=== PATIENT | female | born 1945 | race Caucasian/White ===

== ENCOUNTER → 2018-06-19 08:30 | Outpatient (CLI) | payer MEDICARE, OTHER, SELFPAY ==
[2018-06-19 10:01] LABS: Blood Urea Nitrogen 12 mg/dL (7-17); Calcium 9.5 mg/dL (8.4-10.2); Carbon Dioxide 34 mmol/L (22-32); Chloride 97 mmol/L (98-107); Cholesterol 178 mg/dL (140-199); Estimated Glomerular Filt Rate > 60.0 mL/min (>60); Glucose 101 mg/dL (80-110); HDL Cholesterol 59 mg/dL (40-60); HEMOLYSIS < 15 (0-50); LDL Cholesterol Calculated 90 mg/dL (<100); Potassium 4.6 mmol/L (3.4-5.1); Sodium 138 mmol/L (137-145); Triglycerides 145 mg/dL (35-150)
== END ==
PROVIDERS: Visit Provider Family Medicine
DX: R73.01 Impaired fasting glucose (principal); E78.00 Pure hypercholesterolemia, unspecified
CPT/HCPCS: 36415; 80048; 80061

== ENCOUNTER → 2018-08-08 12:31 | Outpatient (CLI) | payer MEDICARE, OTHER, SELFPAY ==
--- NOTE | 2018-08-08 | DI.RAD.S_ITS ---
This blank DEXA report has been sent in error by the PACS system. The correct and complete report will be forthcoming in 1-2 days. Thank you for your patience and understanding. Dictated by: Vianey Antonio MD, PhD on 08/08/2018 at 15:15 Approved by: Vianey Antonio MD, PhD on 08/08/2018 at 15:15
== END ==
PROVIDERS: Visit Provider Family Medicine
DX: M85.852 Other specified disorders of bone density and structure, left thigh (principal); Z78.0 Asymptomatic menopausal state
CPT/HCPCS: 77080

== ENCOUNTER → 2018-10-03 11:44 | Outpatient (CLI) | payer MEDICARE, OTHER, SELFPAY ==
--- NOTE | 2018-10-03 | DI.CT.S_ITS ---
PROCEDURE: CT HEAD/BRAIN WO CON INDICATIONS: HEADACHE TECHNIQUE: Noncontrast 4.5 mm thick angled axial sections acquired from the foramen magnum to the vertex, with coronal and sagittal reformats. For radiation dose reduction, the following was used: automated exposure control, adjustment of mA and/or kV according to patient size. COMPARISON: None. FINDINGS: Image quality: Excellent. CSF spaces: Basal cisterns are patent. No extra-axial fluid collections. The ventricles are symmetric in size and shape. Brain: No intracranial bleeds or masses. There is cerebral volume loss for age, with resultant ventricular and sulcal prominence. There are periventricular and deep white matter chronic small vessel ischemic changes. Incidental note made of a large falcine ossification center. There is intracranial internal carotid artery atherosclerosis. Skull and face: Calvarium and visualized facial bones appear intact, without suspicious lesions. Sinuses: Mucosal thickening noted in the posterior right ethmoid air cells. The mastoids are clear. IMPRESSION: No acute intracranial disease process. No intracranial hemorrhage. No abnormal intracranial mass. Dictated by: Vianey Antonio MD, PhD on 10/03/2018 at 12:01 Approved by: Vianey Antonio MD, PhD on 10/03/2018 at 12:04
== END ==
PROVIDERS: Visit Provider Family Medicine
DX: R51 Headache (principal)
CPT/HCPCS: 70450

== ENCOUNTER → 2019-09-29 08:59 | Outpatient (CLI) | payer MEDICARE, OTHER, SELFPAY ==
[2019-09-29 10:14] LABS: Hemoglobin A1C% w Est Avg Glu 5.5 % (4.0-6.0)
[2019-09-29 10:31] LABS: Alanine Aminotransferase 18 IU/L (<35); Albumin 4.4 g/dL (3.5-5.0); Albumin Globulin Ratio 1.4 (1.0-2.8); Alkaline Phosphatase 84 U/L (38-126); Aspartate Aminotransferase 31 IU/L (14-36); BUN Creatinine Ratio 15.7 (6-22); Bilirubin Total 0.7 mg/dL (0.2-1.3); Blood Urea Nitrogen 11 mg/dL (7-17); Calcium 9.4 mg/dL (8.4-10.2); Carbon Dioxide 31 mmol/L (22-32); Chloride 100 mmol/L (98-107); Cholesterol 208 mg/dL (140-199); Estimated Glomerular Filt Rate > 60.0 mL/min (>60); Globulin 3.2 g/dL (1.7-4.1); Glucose 115 mg/dL (80-110); HDL Cholesterol 55 mg/dL (40-60); HEMOLYSIS < 15 (0-50); LDL Cholesterol Calculated 121 mg/dL (<100); Potassium 4.5 mmol/L (3.4-5.1); Sodium 138 mmol/L (137-145); Total Protein 7.6 g/dL (6.3-8.2); Triglycerides 162 mg/dL (35-150)
== END ==
PROVIDERS: Visit Provider Family Medicine
DX: Z83.3 Family history of diabetes mellitus (principal); R73.01 Impaired fasting glucose; E78.00 Pure hypercholesterolemia, unspecified
CPT/HCPCS: 36415; 80053; 80061; 83036

== ENCOUNTER → 2020-04-16 08:21 | Outpatient (CLI) | payer MEDICARE, OTHER, SELFPAY ==
[2020-04-16 09:47] LABS: Cholesterol 179 mg/dL (140-199); HDL Cholesterol 63 mg/dL (40-60); LDL Cholesterol Calculated 86 mg/dL (<100); Triglycerides 149 mg/dL (35-150)
== END ==
PROVIDERS: PCP Family Medicine; Referring Provider Family Medicine; Visit Provider Family Medicine
DX: E78.00 Pure hypercholesterolemia, unspecified (principal)
CPT/HCPCS: 36415; 80061

== ENCOUNTER → 2021-01-21 08:14 | Outpatient (CLI) | payer MEDICARE, OTHER, SELFPAY ==
[2021-01-21 10:07] LABS: Hemoglobin A1C% w Est Avg Glu 5.5 % (4.0-6.0)
[2021-01-21 10:12] LABS: Alanine Aminotransferase 18 IU/L (<35); Albumin 4.3 g/dL (3.5-5.0); Albumin Globulin Ratio 1.5 (1.0-2.8); Alkaline Phosphatase 77 U/L (38-126); Aspartate Aminotransferase 32 IU/L (14-36); BUN Creatinine Ratio 17.1 (6-22); Bilirubin Total 0.7 mg/dL (0.2-1.3); Blood Urea Nitrogen 12 mg/dL (7-17); Calcium 9.2 mg/dL (8.4-10.2); Carbon Dioxide 29 mmol/L (22-32); Chloride 98 mmol/L (98-107); Cholesterol 158 mg/dL (140-199); Estimated Glomerular Filt Rate > 60.0 mL/min (>60); Globulin 2.9 g/dL (1.7-4.1); Glucose 114 mg/dL (80-110); HDL Cholesterol 61 mg/dL (40-60); HEMOLYSIS < 15 (0-50); LDL Cholesterol Calculated 75 mg/dL (<100); Potassium 3.8 mmol/L (3.4-5.1); Sodium 135 mmol/L (137-145); Total Protein 7.2 g/dL (6.3-8.2); Triglycerides 111 mg/dL (35-150)
== END ==
PROVIDERS: PCP Family Medicine; Referring Provider Family Medicine; Visit Provider Family Medicine
DX: I10 Essential (primary) hypertension (principal); R73.01 Impaired fasting glucose; E78.00 Pure hypercholesterolemia, unspecified
CPT/HCPCS: 36415; 80053; 80061; 83036

== ENCOUNTER → 2021-01-26 15:53 | Outpatient (CLI) | payer MEDICARE, OTHER, SELFPAY ==
--- NOTE | 2021-01-26 15:56 | DI.MG.S_ITS ---
BILATERAL DIGITAL SCREENING MAMMOGRAM 3D/2D WITH CAD: 01/26/2021 CLINICAL: Routine screening. Comparison is made to exams dated: 04/25/2017 mammogram, 03/28/2016 mammogram - [facility], and 11/13/2013 mammogram - [facility]. There are scattered fibroglandular elements in both breasts. Current study was also evaluated with a Computer Aided Detection (CAD) system. No significant masses, calcifications, or other findings are seen in either breast. There has been no significant interval change. IMPRESSION: NEGATIVE There is no mammographic evidence of malignancy. A 1 year screening mammogram is recommended. This exam was interpreted at Station ID: [id number]. NOTE: For mammograms, a report in lay terms will be sent to the patient. Approximately 15% of breast malignancies will not be visualized mammographically. In the management of a palpable breast mass, a negative mammogram must not discourage biopsy of a clinically suspicious lesion. Electronically Signed By: Seb davis/manan:01/26/2021 16:35:04 letter sent: Normal Exam ACR BI-RADS Category 1: Negative [id number]
== END ==
PROVIDERS: PCP Family Medicine; Referring Provider Family Medicine; Visit Provider Family Medicine
DX: Z12.31 Encounter for screening mammogram for malignant neoplasm of breast (principal)
CPT/HCPCS: 77063; 77067

== ENCOUNTER 2023-01-19 08:33 | Emergency (ER) | payer MEDICARE, OTHER, SELFPAY ==
[2023-01-19] VITALS (19 sets, daily range): BP systolic 147–206; BP diastolic 66–109; PULSE 54–71; RESP 13–29; TEMP 36.7; O2SAT 95–99; BMI 23.9
--- NOTE | 2023-01-19 08:53 | DI.RAD.S_ITS ---
PROCEDURE: XR CHEST 1V INDICATIONS: chest pain TECHNIQUE: One view of the chest was acquired. COMPARISON: None. FINDINGS: Surgical changes and devices: None. Lungs and pleura: Lungs are clear. No pleural effusions or pneumothorax. Mediastinum: Mediastinal contours appear normal. Heart size is normal. Bones and chest wall: No suspicious bony lesions. Overlying soft tissues appear unremarkable. IMPRESSION: No evidence acute pulmonary process. Dictated by: Lam Merritt M.D. on 01/19/2023 at 9:09 Approved by: Lam Merritt M.D. on 01/19/2023 at 9:09
--- NOTE | 2023-01-19 08:53 | DI.CT.S_ITS ---
PROCEDURE: CT HEAD/BRAIN WO CON INDICATIONS: syncopal like episode this am, don't feel like myself TECHNIQUE: Noncontrast 4.5 mm thick angled axial sections acquired from the foramen magnum to the vertex, with coronal and sagittal reformats. For radiation dose reduction, the following was used: automated exposure control, adjustment of mA and/or kV according to patient size. COMPARISON: [facility], CT, CT HEAD/BRAIN WO CON, 10/03/2018, 11:45. FINDINGS: Image quality: Excellent. CSF spaces: Basal cisterns are patent. No extra-axial fluid collections. The ventricles are symmetric in size and shape. Brain: No intracranial bleeds or masses. There is cerebral volume loss for age, with resultant ventricular and sulcal prominence. There are periventricular and deep white matter chronic small vessel ischemic changes. There is intracranial internal carotid artery atherosclerosis. Skull and face: Calvarium and visualized facial bones appear intact, without suspicious lesions. Sinuses: Patchy right ethmoid opacification, identical to the previous study. Other paranasal sinuses and mastoids are clear. IMPRESSION: 1. Chronic right ethmoid sinusitis. 2. No evidence acute intracranial process. Dictated by: Lam Merritt M.D. on 01/19/2023 at 9:09 Approved by: Lam Merritt M.D. on 01/19/2023 at 9:11
[2023-01-19 09:03] LABS: Prothrombin Time 11.9 SECONDS (10.1-12.7)
[2023-01-19 09:05] LABS: Add Manual Diff / Slide Review NO; Basophils Absolute Auto 100 /uL (0-100); Basophils Percent Auto 0.5 % (0-2); Eosinophils Absolute Auto 100 /uL (0-450); Eosinophils Percent Auto 0.4 % (2-4); Hematocrit 44.6 % (36-46); Hemoglobin 14.5 g/dL (12.0-16.0); Lymphocytes Absolute Auto 1500 /uL (1100-4500); Lymphocytes Percent Auto 12.1 % (25-40); Mean Corpuscular HGB Conc 32.4 % (30-36); Mean Corpuscular Hemoglobin 28.1 PG (26-34); Mean Corpuscular Volume 86.6 fL (80-100); Monocytes Absolute Auto 600 /uL (0-900); Monocytes Percent Auto 4.7 % (3-14); Neutrophils Absolute Auto 10000 /uL (1500-7000); Neutrophils Percent Auto 82.3 % (50-75); Platelet Count 220 X10^3/uL (150-400); Red Blood Cell Count 5.15 X10^6/uL (4.0-5.2); Red Cell Distribution Width 13.6 % (11.6-14.8); White Blood Cell Count 12.2 X10^3/uL (4.5-11.0)
[2023-01-19 09:06] LABS: PTT Partial Thromboplastin Tim 34 SECONDS (26-36)
[2023-01-19 09:07] LABS: Alanine Aminotransferase 21 IU/L (<35); Albumin 4.4 g/dL (3.5-5.0); Albumin Globulin Ratio 1.4 (1.0-2.8); Alkaline Phosphatase 92 U/L (38-126); Aspartate Aminotransferase 31 IU/L (14-36); BUN Creatinine Ratio 16.4 (6-22); Blood Urea Nitrogen 9 mg/dL (7-17); Calcium 9.4 mg/dL (8.4-10.2); Carbon Dioxide 29 mmol/L (22-32); Chloride 94 mmol/L (98-107); Creatine Kinase 107 U/L (30-135); Estimated Glomerular Filt Rate > 60 mL/min (>60); Globulin 3.2 g/dL (1.7-4.1); Glucose 122 mg/dL (80-110); Lipase 69 U/L (23-300); Magnesium 1.8 mg/dL (1.6-2.3); Potassium 3.8 mmol/L (3.4-5.1); Sodium 130 mmol/L (137-145); Total Protein 7.6 g/dL (6.3-8.2)
[2023-01-19 09:22] LABS: CKMB % Relative Index 2.4 % (1.5-5.0); HEMOLYSIS 23 (0-50)
[2023-01-19 09:31] LABS: Troponin I < 0.012 ng/mL (0.01-0.034)
[2023-01-19 10:26] LABS: Adenovirus Not Detected (Not Detect); B. parapertussis Not Detected (Not Detecte); Bordetella pertussis Not Detected (Not Detecte); Chlamydophila pneumoniae Not Detected (Not Detect); Coronavirus 229E Not Detected (Not Detect); Coronavirus HKU1 Not Detected (Not Detect); Coronavirus NL 63 Not Detected (Not Detect); Coronavirus OC43 Not Detected (Not Detect); Human Metapneumovirus Not Detected (Not Detect); Human Rhinovirus/Enterovirus Detected (Not Detect); Influenza A Not Detected (Not Detect); Influenza B Not Detected (Not Detect); Mycoplasma pneumoniae Not Detected (Not Detect); Parainfluenza Virus 1 Not Detected (Not Detect); Parainfluenza Virus 2 Not Detected (Not Detect); Parainfluenza Virus 3 Not Detected (Not Detect); Parainfluenza Virus 4 Not Detected (Not Detect); Respiratory Syncytial Virus Not Detected (Not Detect); SARS- CoV-2 Not Detected (Not Detecte)
--- NOTE | 2023-01-19 11:03 | ED.SYNCOPE ---
HPI - Syncope General Chief Complaint: Syncope Stated Complaint: nearly fainted at home Time Seen by Provider: 01/19/23 10:20 Source: patient and family Mode of arrival: Ambulatory Limitations: no limitations History of Present Illness HPI narrative: This is a 77-year-old female with history of osteoarthritis, dyslipidemia, lichen sclerosus and GERD. Patient states she woke up this morning she felt like saliva was sort of bubbling up in her mouth. Patient states it feels like when she is used a widening medication for her teeth that she use last Sunday. She states she stopped using it since then. She did not appreciate any difficulty with swallowing she states there was not any postnasal drip at feel like bubbles in her mouth or that she was having a little bit too much saliva. She states she got up to go to the bathroom she urinated on her way back she got very lightheaded felt like her legs were going to give out and had a near syncopal episode. She denies headache, denies vertigo which she states she has had in the past. She denies any fevers or chills. No cold cough or congestion that is new. She states she always has a cough particularly at nighttime. No chest pain or pressure. She sometimes gets dyspnea when she goes up hill but states that has been chronic at baseline with no worsening. She did get diaphoretic with today's episode. No nausea no vomiting. No issues with bowel movements. She is some chronic urinary incontinence but no new dysuria urgency or frequency. No new swelling in her legs. She felt a little bit tingling all over but denies any one-sided or lateralizing weakness no facial droop no difficulty with speech. 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 They states she tends to run about 70 for her heart rate. This improved over time. She did drink some water she did not have any dysphagia or difficulty with swallowing. She denies any prior surgeries. She is an allergy to Macrobid. No tobacco she has 1 or 2 glasses of wine nightly, no illicit. Her primary care is [facility] through [facility]. Related Data Home Medications Medication Instructions Recorded Confirmed etodolac 400 mg tablet 400 mg PO DAILY 07/02/19 01/19/23 famotidine 20 mg tablet 20 mg PO DAILY 09/22/20 01/19/23 cyclosporine 0.05 % eye drops in a 1 drp EYE-BOTH BEDTIME 01/19/23 01/19/23 dropperette (Restasis) estradiol 0.01% (0.1 mg/gram) 1 g vaginal QWEEK PRN vaginal 01/19/23 01/19/23 vaginal cream atrophy simvastatin 40 mg tablet 20 mg PO BEDTIME 01/19/23 01/19/23 Previous Rx's Medication Instructions Recorded betamethasone, augmented 0.05 % 1 applic topical .COMPLEX Lichen 04/06/22 topical gel sclerosis #15 grams Allergies Allergy/AdvReac Type Severity Reaction Status Date / Time nitrofurantoin Allergy Intermediate Verified 01/19/23 08:58 [From MACRODANTIN] Review of Systems Review of Systems ROS Unobtainable: All systems reviewed & are unremarkable except as noted in HPI and below Patient History Medical History Lichen sclerosus of female genitalia Social History Smoking Status: Never smoker Smoking Status: Never smoker alcohol intake frequency: 0-2 drinks per day Substance Use Type: does not use Exam Narrative Exam Narrative: GEN: well nourished, well appearing female, alert and oriented x 3, patient appears to be in mild distress. HEENT: Atraumatic, pupils are equal round reactive to light, extraocular movements are intact, nares are clear, TMs are clear with no fluid, there is no conjunctival pallor. Throat is clear without any exudates, erythema, tonsillar enlargement or uvular deviation, no facial droop. Normal speech. HEART: Regular rate and rhythm without murmur, clicks, rubs. Pulses are equal in upper and lower extremities LUNGS:Lungs clear to auscultation, no wheezes, rales, crackles, chest moves symmetrically ABD:bowel sounds normal, soft, non-tender, no guarding, rebound, rigidity, no masses noted, no hepatosplenomegaly :No CVA tenderness MSCL: Non-tender, no muscle atrophy, muscles strength 5/5 upper and lower extremities, full range of motion NEURO:CN 2-12 intact, sensation normal, reflexes 2/4 upper and lower extremities. finger nose finger test normal, heel morrison test normal, no dysarthria, no aphasia SKIN: No Rash, erythema or other skin changes Initial Vital Signs Initial Vital Signs: Vital Signs Temperature 98.1 F 01/19/23 08:35 Pulse Rate 54 L 01/19/23 08:35 Respiratory Rate 14 01/19/23 08:35 Blood Pressure 200/100 H 01/19/23 08:35 Pulse Oximetry 99 01/19/23 08:35 Oxygen Delivery Method Room Air 01/19/23 08:35 Scores NIH Stroke Scale Level of Conciousness: Alert, keenly responsive Ask month/age: Answers both questions correctly. Open/close eyes, close hand: Performs both tasks correctly Best gaze horizontal: Normal Visual machado: No visual loss Facial palsy: Normal symetrical movement Left arm drift: No drift for full 10 sec Right arm drift: No drift for full 10 sec Left leg drift: No drift for full 5 sec Right leg drift: No drift for full 5 sec Limb ataxia: Absent Sensory on face/arms/legs: Normal, no sensory loss Best language: No aphasia, normal Dysarthria: Normal Extinction or inattention: No abnormality Total NIH Stroke scale score: 0 Course Orders Ordered: ED Orders 01/19/23 08:47 Complete Blood Count AUTO DIFF Stat Comprehensive Metabolic Panel Stat Lipase Stat Magnesium Stat PTT Partial Thromboplastin Harshad Stat Prothrombin Time INR Stat Troponin & CK Cardiac Panel Stat 01/19/23 08:53 CT head/brain wo con Stat XR chest 1V Stat 01/19/23 08:54 Urinalysis and Microscopic Stat 01/19/23 09:15 Respiratory Panel (Film Array) Stat 01/19/23 09:32 EKG-12 Lead Stat 01/19/23 11:20 Trop I [Troponin I] Stat 01/19/23 11:35 EKG-12 Lead Routine Vital Signs Vital signs: Vital Signs - 8 hr 01/19/23 08:35 01/19/23 08:39 01/19/23 08:42 Temperature 98.1 F Pulse Rate 54 L 71 Respiratory Rate 14 Blood Pressure 200/100 H 200/90 H Pulse Oximetry 99 97 Oxygen Delivery Method Room Air 01/19/23 08:42 01/19/23 08:45 01/19/23 08:45 Temperature Pulse Rate 67 64 Respiratory Rate Blood Pressure 197/79 H Pulse Oximetry 98 98 Oxygen Delivery Method 01/19/23 09:05 01/19/23 09:06 01/19/23 09:06 Temperature Pulse Rate 68 69 Respiratory Rate 18 Blood Pressure 190/86 H Pulse Oximetry 98 98 Oxygen Delivery Method Room Air 01/19/23 09:15 01/19/23 09:15 01/19/23 09:30 Temperature Pulse Rate 64 Respiratory Rate 29 H Blood Pressure 206/95 H 201/109 H Pulse Oximetry 98 Oxygen Delivery Method 01/19/23 09:30 01/19/23 09:45 01/19/23 09:45 Temperature Pulse Rate 64 60 Respiratory Rate 24 20 Blood Pressure 191/89 H Pulse Oximetry 97 97 Oxygen Delivery Method Room Air 01/19/23 10:00 01/19/23 10:00 01/19/23 10:15 Temperature Pulse Rate 63 Respiratory Rate 23 Blood Pressure 174/81 H 171/76 H Pulse Oximetry 98 Oxygen Delivery Method 01/19/23 10:15 01/19/23 10:30 01/19/23 10:30 Temperature Pulse Rate 58 L 57 L Respiratory Rate 13 20 Blood Pressure 173/79 H Pulse Oximetry 97 95 Oxygen Delivery Method Room Air 01/19/23 10:45 01/19/23 10:45 01/19/23 11:00 Temperature Pulse Rate 62 Respiratory Rate 19 Blood Pressure 148/67 H 169/74 H Pulse Oximetry 96 Oxygen Delivery Method 01/19/23 11:00 01/19/23 11:15 01/19/23 11:15 Temperature Pulse Rate 59 L 66 Respiratory Rate 17 26 H Blood Pressure 182/79 H Pulse Oximetry 97 96 Oxygen Delivery Method 01/19/23 11:30 01/19/23 11:30 01/19/23 11:45 Temperature Pulse Rate 60 Respiratory Rate 23 Blood Pressure 182/79 H 147/66 H Pulse Oximetry 96 Oxygen Delivery Method 01/19/23 11:45 01/19/23 12:00 01/19/23 12:01 Temperature Pulse Rate 60 63 Respiratory Rate 26 H 22 Blood Pressure 164/73 H Pulse Oximetry 96 97 Oxygen Delivery Method 01/19/23 12:01 Temperature Pulse Rate 63 Respiratory Rate 22 Blood Pressure Pulse Oximetry 98 Oxygen Delivery Method Room Air MDM - Syncope Lab Data 01/19/23 08:47 01/19/23 08:47 Labs: Lab Results 01/19/23 01/19/23 01/19/23 Range/Units 08:47 08:47 08:47 WBC 12.2 H (4.5-11.0) X10^3/uL RBC 5.15 (4.0-5.2) X10^6/uL Hgb 14.5 (12.0-16.0) g/dL Hct 44.6 (36-46) % MCV 86.6 (80-100) fL MCH 28.1 (26-34) PG MCHC 32.4 (30-36) % RDW 13.6 (11.6-14.8) % Plt Count 220 (150-400) X10^3/uL Neut % (Auto) 82.3 H (50-75) % Lymph % (Auto) 12.1 L (25-40) % Reynolds % (Auto) 4.7 (3-14) % Eos % (Auto) 0.4 L (2-4) % Baso % (Auto) 0.5 (0-2) % Neut # (Auto) 01650 H (8370-2370) /uL Lymph # (Auto) 1500 (6907-4191) /uL Reynolds # (Auto) 600 (0-900) /uL Eos # (Auto) 100 (0-450) /uL Baso # (Auto) 100 (0-100) /uL PT 11.9 (10.1-12.7) SECONDS INR 1.0 (0.9-1.3) APTT 34 (26-36) SECONDS Sodium 130 L (137-145) mmol/L Potassium 3.8 (3.4-5.1) mmol/L Chloride 94 L (98-107) mmol/L Carbon Dioxide 29 (22-32) mmol/L BUN 9 (7-17) mg/dL Creatinine 0.55 (0.52-1.04) mg/dL Estimated GFR > 60 (>60) mL/min BUN/Creatinine Ratio 16.4 (6-22) Glucose 122 H (80-110) mg/dL Calcium 9.4 (8.4-10.2) mg/dL Magnesium 1.8 (1.6-2.3) mg/dL Total Bilirubin 1.0 (0.2-1.3) mg/dL AST 31 (14-36) IU/L ALT 21 (<35) IU/L Alkaline Phosphatase 92 (38-126) U/L Total Creatine Kinase 107 (30-135) U/L CK-MB (CK-2) 2.60 H (<2.37) ng/mL CK-MB (CK-2) Rel Index 2.4 (1.5-5.0) % Troponin I < 0.012 (0.01-0.034) ng/mL Total Protein 7.6 (6.3-8.2) g/dL Albumin 4.4 (3.5-5.0) g/dL Globulin 3.2 (1.7-4.1) g/dL Albumin/Globulin Ratio 1.4 (1.0-2.8) Lipase 69 (23-300) U/L Chlamy pneumoniae PCR (Not Detect) Adenovirus (PCR) (Not Detect) B. pertussis DNA (PCR) (Not Detecte) B.parapertussis DNA PCR (Not Detecte) Coronavirus OC43 (PCR) (Not Detect) Coronavirus HKU1 (PCR) (Not Detect) Coronavirus 229E (PCR) (Not Detect) SARS-CoV-2 (PCR) (Not Detecte) Coronavirus NL63 (PCR) (Not Detect) Human Metapneumovir PCR (Not Detect) Influenza Type A (PCR) (Not Detect) Influenza Type B (PCR) (Not Detect) M. pneumoniae (PCR) (Not Detect) Parainfluenza 1 (PCR) (Not Detect) Parainfluenza 2 (PCR) (Not Detect) Parainfluenza 3 (PCR) (Not Detect) Parainfluenza 4 (PCR) (Not Detect) RSV (PCR) (Not Detect) Entero/Rhino (PCR) (Not Detect) 01/19/23 01/19/23 Range/Units 09:15 11:20 WBC (4.5-11.0) X10^3/uL RBC (4.0-5.2) X10^6/uL Hgb (12.0-16.0) g/dL Hct (36-46) % MCV (80-100) fL MCH (26-34) PG MCHC (30-36) % RDW (11.6-14.8) % Plt Count (150-400) X10^3/uL Neut % (Auto) (50-75) % Lymph % (Auto) (25-40) % Reynolds % (Auto) (3-14) % Eos % (Auto) (2-4) % Baso % (Auto) (0-2) % Neut # (Auto) (9941-5023) /uL Lymph # (Auto) (0849-2770) /uL Reynolds # (Auto) (0-900) /uL Eos # (Auto) (0-450) /uL Baso # (Auto) (0-100) /uL PT (10.1-12.7) SECONDS INR (0.9-1.3) APTT (26-36) SECONDS Sodium (137-145) mmol/L Potassium (3.4-5.1) mmol/L Chloride (98-107) mmol/L Carbon Dioxide (22-32) mmol/L BUN (7-17) mg/dL Creatinine (0.52-1.04) mg/dL Estimated GFR (>60) mL/min BUN/Creatinine Ratio (6-22) Glucose (80-110) mg/dL Calcium (8.4-10.2) mg/dL Magnesium (1.6-2.3) mg/dL Total Bilirubin (0.2-1.3) mg/dL AST (14-36) IU/L ALT (<35) IU/L Alkaline Phosphatase (38-126) U/L Total Creatine Kinase (30-135) U/L CK-MB (CK-2) (<2.37) ng/mL CK-MB (CK-2) Rel Index (1.5-5.0) % Troponin I < 0.012 (0.01-0.034) ng/mL Total Protein (6.3-8.2) g/dL Albumin (3.5-5.0) g/dL Globulin (1.7-4.1) g/dL Albumin/Globulin Ratio (1.0-2.8) Lipase (23-300) U/L Chlamy pneumoniae PCR Not detected (Not Detect) Adenovirus (PCR) Not detected (Not Detect) B. pertussis DNA (PCR) Not detected (Not Detecte) B.parapertussis DNA PCR Not detected (Not Detecte) Coronavirus OC43 (PCR) Not detected (Not Detect) Coronavirus HKU1 (PCR) Not detected (Not Detect) Coronavirus 229E (PCR) Not detected (Not Detect) SARS-CoV-2 (PCR) Not detected (Not Detecte) Coronavirus NL63 (PCR) Not detected (Not Detect) Human Metapneumovir PCR Not detected (Not Detect) Influenza Type A (PCR) Not detected (Not Detect) Influenza Type B (PCR) Not detected (Not Detect) M. pneumoniae (PCR) Not detected (Not Detect) Parainfluenza 1 (PCR) Not detected (Not Detect) Parainfluenza 2 (PCR) Not detected (Not Detect) Parainfluenza 3 (PCR) Not detected (Not Detect) Parainfluenza 4 (PCR) Not detected (Not Detect) RSV (PCR) Not detected (Not Detect) Entero/Rhino (PCR) Detected H (Not Detect) Imaging Data Chest x-ray: Radiologist's Impression: [address] [address] XRay Report Signed Patient: Felipa Kuo MR#: [id number] : 1945 Acct:[id number] Age/Sex: 77 / F Date of Service: 01/19/23 Loc: ED Accession Number: [id number] ?? Procedure: XR chest 1V Ordering Provider: Jo-Ann Schumacher D.O. PROCEDURE:? XR CHEST 1V ? INDICATIONS:? chest pain ? TECHNIQUE:? One view of the chest was acquired.? ? COMPARISON:? None. ? FINDINGS:? ? Surgical changes and devices:? None.? ? Lungs and pleura:? Lungs are clear.? No pleural effusions or pneumothorax.? ? Mediastinum:? Mediastinal contours appear normal.? Heart size is normal.? ? Bones and chest wall:? No suspicious bony lesions.? Overlying soft tissues appear unremarkable.? ? IMPRESSION:? No evidence acute pulmonary process. ? ? ? Dictated by: Lam Merritt M.D. on 01/19/2023 at 9:09 ? ? Approved by: Lam Merritt M.D. on 01/19/2023 at 9:09?? CT scan - head: Radiologist's Impression: [address] [address] XRay Report Signed Patient: Felipa Kuo MR#: [id number] : 1945 Acct:[id number] Age/Sex: 77 / F Date of Service: 01/19/23 Loc: ED Accession Number: [id number] ?? Procedure: XR chest 1V Ordering Provider: Jo-Ann Schumacher D.O. PROCEDURE:? XR CHEST 1V ? INDICATIONS:? chest pain ? TECHNIQUE:? One view of the chest was acquired.? ? COMPARISON:? None. ? FINDINGS:? ? Surgical changes and devices:? None.? ? Lungs and pleura:? Lungs are clear.? No pleural effusions or pneumothorax.? ? Mediastinum:? Mediastinal contours appear normal.? Heart size is normal.? ? Bones and chest wall:? No suspicious bony lesions.? Overlying soft tissues appear unremarkable.? ? IMPRESSION:? No evidence acute pulmonary process. ? ? ? Dictated by: Lam Merritt M.D. on 01/19/2023 at 9:09 ? ? Approved by: Lam Merritt M.D. on 01/19/2023 at 9:09?? ECG Data Attestation: I personally reviewed and interpreted this ECG as follows: Interpretation: Sinus rhythm rate of 63, LA 168 QRS 82 QTC [address]. No acute ST elevation possible left atrial enlargement. LVH. Sinus rhythm rate of 60 2p are 136 QRS 86 QTC 448. Nonspecific change. Patient has some LVH changes appear similar to prior from today. EKG 2. MDM Narrative Medical decision making narrative: This is a 77-year-old female who comes in with an episode where she felt a lot of saliva bubbling in her mouth when up to get to the bathroom came back had a near syncopal episode she was orthostatic her who is retired physician did orthostatics she did not have any tachycardia her heart rate did not really respond but she dropped her pressure. That improved he did several rounds and she has little bit hypertensive today. Patient CBC, coags, CMP, LFTs and troponin show a sodium of 130 but no other significant changes CK was 2.6 troponin was repeated along with EKG patient does not have any cardiac symptoms. Repeat EKG and troponin is negative. Patient's head CT is negative, does show some sinusitis changes but this is unlikely cause of her symptoms. Chest x-ray is negative. Patient did test positive for entero/rhino virus this may be a source of some of her symptoms. Patient does not have any neurologic changes or other changes make me suspicious for acute change. She is not had any arrhythmia here she is 60s to 50s with her heart rate no priors for comparison. Discharge Plan Departure Patient Disposition: Home Clinical Impression: Near syncope, Enterovirus infection Instructions: DI for Syncope in Adults (Fainting) Activity Restrictions/Additional Instructions: Follow-up for recheck particularly if your symptoms have not totally resolved. You did test positive for entero/rhinovirus today this could have precipitated some of your symptoms. I would continue to monitor your blood pressure as well as your heart rate. Talk with your physician if you continue to notice a change with these. Please return for new or worsening symptoms severe headaches, chest pain or shortness of breath, persistent vomiting, difficulty with swallowing, facial droop, new numbness, tingling or weakness, loss of bowel or bladder control or other new or concerning changes. Prescriptions: No Action betamethasone, augmented 0.05 % gel 1 applic TOP .COMPLEX Qty: 15 1RF Rx Instructions: 1 applic topical At least twice a month, use more frequently for symptoms famotidine 20 mg tablet 20 mg PO DAILY etodolac 400 mg tablet 400 mg PO DAILY simvastatin 40 mg tablet 20 mg PO BEDTIME cyclosporine [Restasis] 0.05 % dropperette 1 drp EYE-BOTH BEDTIME estradiol 0.01 % (0.1 mg/gram) cream 1 g VAG QWEEK PRN (Reason: vaginal atrophy) Rx Instructions: Apply a small amount at the opening to the vagina as needed to control 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 Referrals: Danay Vela DO [Primary Care Provider] - Stand Alone Forms: Patient Portal/API
[2023-01-19 11:58] LABS: Troponin I < 0.012 ng/mL (0.01-0.034)
== END 2023-01-19 12:19 | disposition home or self-care (01) ==
PROVIDERS: Emergency Provider Emergency Medicine; PCP Family Medicine
DX: R55 Syncope and collapse (principal); R42 Dizziness and giddiness; R07.9 Chest pain, unspecified; B34.1 Enterovirus infection, unspecified; Z20.822 Contact with and (suspected) exposure to COVID-19
CPT/HCPCS: 36415; 70450; 71045; 80053; 82550; 82553; 83690; 83735; 84484; 85025; 85610; 85730; 87633; 93005; 93010; 99284

== ENCOUNTER 2023-02-23 09:17 | Emergency (ER) | payer MEDICARE, OTHER, SELFPAY ==
[2023-02-23] VITALS (39 sets, daily range): BP systolic 145–218; BP diastolic 71–94; PULSE 58–80; RESP 13–34; TEMP 36.7; O2SAT 93–100
--- NOTE | 2023-02-23 09:26 | DI.RAD.S_ITS ---
PROCEDURE: XR CHEST 1V INDICATIONS: altered mental status TECHNIQUE: One view of the chest was acquired. COMPARISON: [facility], CR, XR CHEST 1V, 01/19/2023, 8:55. FINDINGS: Surgical changes and devices: None. Lungs and pleura: Lungs are clear. No pleural effusions or pneumothorax. Mediastinum: Mediastinal contours appear normal. Heart size is normal. Bones and chest wall: No suspicious bony lesions. Overlying soft tissues appear unremarkable. IMPRESSION: No acute pulmonary process. Dictated by: Irlanda Roque M.D. on 02/23/2023 at 9:50 Approved by: Irlanda Roque M.D. on 02/23/2023 at 9:50
--- NOTE | 2023-02-23 09:27 | DI.CT.S_ITS ---
PROCEDURE: CT HEAD/BRAIN WO CON INDICATIONS: headache confusion w/o trauma. TECHNIQUE: Noncontrast 4.5 mm thick angled axial sections acquired from the foramen magnum to the vertex, with coronal and sagittal reformats. For radiation dose reduction, the following was used: automated exposure control, adjustment of mA and/or kV according to patient size. COMPARISON: [facility], CT, CT HEAD/BRAIN WO CON, 01/19/2023, 9:00. FINDINGS: Image quality: Excellent. CSF spaces: Basal cisterns are patent. No extra-axial fluid collections. The ventricles are symmetric in size and shape. Brain: No intracranial bleeds or masses. There is cerebral volume loss for age, with resultant ventricular and sulcal prominence. There are periventricular and deep white matter chronic small vessel ischemic changes. There is intracranial internal carotid artery atherosclerosis. Skull and face: Calvarium and visualized facial bones appear intact, without suspicious lesions. Sinuses: Visualized sinuses and mastoids are clear. IMPRESSION: 1. No acute intracranial process. 2. Moderate atrophy and chronic microvascular ischemic changes. Dictated by: Irlanda Roque M.D. on 02/23/2023 at 10:29 Approved by: Irlanda Roque M.D. on 02/23/2023 at 10:30
--- NOTE | 2023-02-23 09:28 | DI.CT.S_ITS ---
PROCEDURE: CT ANGIO HEAD AND NECK INDICATIONS: acute confusion headache, no trauma TECHNIQUE: After the administration of intravenous contrast, 1 mm thick sections acquired from the aortic arch through the [place] of [place]. Post-contrast 4.5 mm thick sections then re-acquired from the foramen magnum to the vertex. 3-dimensional zaqmgbb-srgvjurmt-krvjzcdjfe (MIP) and/or volume rendering reformats were acquired of the central intracranial vasculature and neck separately. For radiation dose reduction, the following was used: automated exposure control, adjustment of mA and/or kV according to patient size. COMPARISON: [facility], CT, CT HEAD/BRAIN WO CON, 02/23/2023, 9:50. [facility], CT, CT HEAD/BRAIN WO CON, 01/19/2023, 9:00. FINDINGS: Image quality: Excellent. BRAIN: The ventricular system and cortical sulci demonstrate atrophy, consistent for the patient's stated age. There are areas of hypodensity within the periventricular and subcortical white matter. There is no acute intra-or extra axial fluid collection. No acute hemorrhage, mass lesion or midline shift. Brainstem is unremarkable. Globes are symmetrical. Sinuses demonstrate chronic ethmoid mucosal thickening.. Osseous structures are intact. HEAD CT ANGIOGRAPHY: Anterior circulation: There is moderate bilateral, left greater than right stenosis of the supraclinoid internal carotid arteries.. The flow within the paired anterior cerebral arteries is normal and symmetric. The flow within the middle cerebral arteries is normal and symmetric. The anterior communicating artery is seen. No aneurysms are seen. Posterior circulation: There is a right vertebral artery dominance. Visualized portions of the vertebral arteries demonstrate normal caliber, and join to form a normal appearing basilar artery. Flow within the posterior cerebral arteries is normal and symmetric. No aneurysms are seen. NECK CT ANGIOGRAPHY: Carotid system: The great vessels demonstrate a conventional anatomy as they arise from the aortic arch. The origins of the common carotid arteries appear patent. The common carotid arteries demonstrate normal caliber and courses. The bifurcation regions are both widely patent. The internal carotid arteries demonstrate normal calibers and courses. Posterior circulation: The origins of the vertebral arteries both appear widely patent. The more superior extracranial portions of both vertebral arteries also demonstrate normal courses and calibers. They join to form a normal appearing basilar artery. Soft tissues: Visualized neck soft tissues demonstrate no suspicious abnormalities. Bones: No suspicious bony lesions. Visualized cervical spine appears normally aligned. IMPRESSION: 1. No acute intracranial process. 2. Moderate atrophy and chronic microvascular ischemic changes. 3. No areas of hemodynamically significant stenosis, vascular occlusion or aneurysmal dilation within the posterior circulation. Bilateral moderate supraclinoid internal carotid artery stenosis is present. 4. No areas of hemodynamically significant stenosis, vascular occlusion or aneurysmal dilation within the neck vasculature. Any quantitative measurements of stenosis were performed using NASCET criteria. Dictated by: Irlanda Roque M.D. on 02/23/2023 at 10:31 Approved by: Irlanda Roque M.D. on 02/23/2023 at 10:34
--- NOTE | 2023-02-23 09:43 | PC.NURSE ---
pt states she started feeling unwell yesterday mid morning. c/o tongue numbness, facial numbness, , headache with photophobia, confusion, fatigue, chills. denies fever. does state had a eye surgery on sunday and follow up with surgeon on sunday, everything was okay. pt describes pt as having flu like symptoms yesterday
[2023-02-23 09:44] LABS: Add Manual Diff / Slide Review NO; Basophils Absolute Auto 100 /uL (0-100); Basophils Percent Auto 0.7 % (0-2); Eosinophils Absolute Auto 0 /uL (0-450); Eosinophils Percent Auto 0.4 % (2-4); Hemoglobin 14.8 g/dL (12.0-16.0); Lymphocytes Absolute Auto 2000 /uL (1100-4500); Lymphocytes Percent Auto 20.8 % (25-40); Mean Corpuscular HGB Conc 32.8 % (30-36); Mean Corpuscular Hemoglobin 28.5 PG (26-34); Mean Corpuscular Volume 86.8 fL (80-100); Monocytes Absolute Auto 600 /uL (0-900); Monocytes Percent Auto 6.5 % (3-14); Neutrophils Absolute Auto 7000 /uL (1500-7000); Neutrophils Percent Auto 71.6 % (50-75); Platelet Count 244 X10^3/uL (150-400); Red Blood Cell Count 5.19 X10^6/uL (4.0-5.2); Red Cell Distribution Width 13.8 % (11.6-14.8); White Blood Cell Count 9.8 X10^3/uL (4.5-11.0)
[2023-02-23 09:51] LABS: Alanine Aminotransferase 23 IU/L (<35); Albumin 4.7 g/dL (3.5-5.0); Albumin Globulin Ratio 1.4 (1.0-2.8); Alkaline Phosphatase 76 U/L (38-126); Aspartate Aminotransferase 32 IU/L (14-36); BUN Creatinine Ratio 13.8 (6-22); Bilirubin Total 0.9 mg/dL (0.2-1.3); Blood Urea Nitrogen 8 mg/dL (7-17); Calcium 9.3 mg/dL (8.4-10.2); Carbon Dioxide 28 mmol/L (22-32); Chloride 97 mmol/L (98-107); Estimated Glomerular Filt Rate > 60 mL/min (>60); Globulin 3.3 g/dL (1.7-4.1); Glucose 123 mg/dL (80-110); HEMOLYSIS 42 (0-50); Sodium 133 mmol/L (137-145)
[2023-02-23] MEDS: SODIUM CHLORIDE 0.9% 500 ML 1000 ML IV (10:03)
--- NOTE | 2023-02-23 10:26 | DI.MRI.S_ITS ---
PROCEDURE: MR HEAD/BRAIN WO CON INDICATIONS: ams TECHNIQUE: Non-contrast axial T1 spin echo, axial T2 fast spin echo, sagittal and axial FLAIR, coronal T2 fast spin echo, axial gradient echo, axial diffusion and ADC through the brain. COMPARISON: [facility], CT, CT ANGIO HEAD AND NECK, 02/23/2023, 9:50. [facility], CT, CT HEAD/BRAIN WO CON, 02/23/2023, 9:50. FINDINGS: Image quality: This examination is limited by involuntary motion artifact. CSF spaces: Ventricles appear symmetric in size and shape. Basal cisterns are patent. No extra-axial fluid collections. Brain: Small foci of abnormal increased diffusion weighted signal can be seen involving the posterior left cerebral hemisphere as well as the left thalamus. Mild developing T2 weighted signal can be seen at these sites. No intracranial bleeds or mass effects. There is cerebral volume loss for age. There are periventricular and deep white matter chronic small vessel ischemic changes. Brainstem appears normal. No chronic ischemic insults. Normal intravascular flow voids are present. Skull and face: Calvarial bone marrow is normal in signal. Orbits are normal. Sinuses: Moderate mucosal thickening can be seen involving the posterior right ethmoid air cells. Minimal mucosal thickening is seen elsewhere within the paranasal sinuses. There is mild mastoid air cell fluid seen on the right. IMPRESSION: Several small foci of subacute infarction can be seen on the left. The appearance is most consistent with an embolic phenomenon. Dictated by: Wali Trejo M.D. on 02/23/2023 at 10:12 Approved by: Wali Trejo M.D. on 02/23/2023 at 10:16
--- NOTE | 2023-02-23 10:26 | DI.ECHO.S_ITS ---
[facility]---------+ [facility] +---------+ : : [address] [place] : : : : [id number] : : : : Phone: [phone]+ Echocardiogram Report + + :Name: JASON WARD Study Date: 02/23/2023 Height: 68.5 in: :[facility] ReadingLocation: Weight: 167 lb : : Gender: Female BSA: 1.9 m2 : :: 1945 Age: 77 yrs BP: 171/80 mmHg: :Reason For Study: TIA : :Ordering Physician: BERTA, : :TRAVIS Performed By: Yun Mehta : :Referring: TRAVIS HAMPTON : + + Interpretation Summary The ejection fraction is estimated to be 55-60%. There is no Doppler evidence for an interatrial shunt. There is moderate mitral annular calcification. There is mild mitral regurgitation. Nodular calcification of the PMVL is noted. This could be degenerative or an old healed vegetation. There is mild tricuspid regurgitation. The right ventricular systolic pressure is estimated to be at least 24 mmHg based on an estimated right atrial pressure of 3 mm Hg. Procedure: A two-dimensional transthoracic echocardiogram with color flow and Doppler was performed. The study quality was technically adequate. There is no prior echocardiogram noted for this patient. The patient was in sinus bradycardia with heart rates between 57-60 bpm during the exam. Left Ventricle: The left ventricle is normal in size. There is mild concentric left ventricular hypertrophy. The ejection fraction is estimated to be 55-60%. Left ventricular wall motion is normal. Right Ventricle: The right ventricle is normal in size and function. Atria: The left atrium is borderline dilated. Right atrial size is normal. There is no Doppler evidence for an interatrial shunt. Mitral Valve: There is moderate mitral annular calcification. Nodular calcification of the PMVL is noted. This could be degenerative or an old healed vegetation. There is mild mitral regurgitation. Aortic Valve: The aortic valve is trileaflet. The aortic valve is mildly calcified. There is no aortic valve stenosis. No aortic regurgitation is present. Tricuspid Valve: The tricuspid valve is normal in structure and function. There is mild tricuspid regurgitation. The right ventricular systolic pressure is estimated to be at least 24 mmHg based on an estimated right atrial pressure of 3 mm Hg. Pulmonic Valve: The pulmonic valve leaflets are thin and pliable; valve motion is normal. There is mild pulmonic regurgitation. Great Vessels: The aortic root is normal size. The dimensions of the ascending aorta are normal. The IVC is of normal diameter and collapses greater than 50% with a sniff. This suggests a low right atrial pressure of 3 mm Hg. Pericardium/ Pleura There is no pericardial effusion. There is no pleural effusion. MMode/2D Measurements & Calculations LVIDd: 4.6 cm LVOT diam: 2.0 cm LVIDs: 3.0 cm Ao root diam: 2.7 cm FS: 36.1 % asc Aorta Diam: 3.5 cm EPSS: 0.38 cm Ao Arch Diam (Prox Trans): 2.6 cm IVSd: 1.3 cm LVPWd: 0.84 cm LV julian. diameter/BSA (cm/m^2): 2.4 LV sys. diameter/BSA (cm/m^2): 1.6 LA A2 area: 20.7 cm2 RA long axis: 5.0 cm LA A4 area: 19.1 cm2 RA area: 16.5 cm2 LA length (vol): 5.4 cm RA vol: 46.6 ml LA vol: 62.7 ml RA : 24.5 ml/m2 LA vol index: 32.9 ml/m2 IVC diam: 1.2 cm RVD1 (basal): 4.1 cm RVD2 (mid): 3.1 cm TAPSE: 1.8 cm Doppler Measurements & Calculations Ao V2 max: 147.1 cm/sec LVOT Max Ney: 79.8 cm/sec Ao V2 mean: 106.0 cm/sec LV V1 max P.5 mmHg Ao max P.7 mmHg LV V1 VTI: 21.7 cm Ao mean P.9 mmHg GRACIE(I,D): 1.9 cm2 Ao V2 VTI: 35.1 cm GRACIE(V,D): 1.6 cm2 sev ratio: 0.62 GRACIE indexed to BSA (cm^2/m^2): 0.99 MV E max ney: 67.5 cm/sec TR max ney: 229.0 cm/sec MV A max ney: 116.7 cm/sec TR max P.0 mmHg MV E/A: 0.58 PA V2 max: 87.6 cm/sec Med Peak E' Ney: 4.8 cm/sec PA V2 mean: 60.3 cm/sec E/E' med: 13.9 PA mean P.7 mmHg Lat Peak E' Ney: 4.8 cm/sec PA pr(Accel): 31.0 mmHg E/E' lat: 14.1 E/e' average: 14.0 MV dec time: 0.34 sec MVA(VTI): 1.8 cm2 MV V2 mean: 54.9 cm/sec SV(LVOT): 66.0 ml MV mean P.5 mmHg MV V2 VTI: 35.8 cm Reading Physician:04:35 PM
--- NOTE | 2023-02-23 10:42 | ED.AMS ---
HPI - Altered Mental Status General Chief Complaint: Altered Mental Status Stated Complaint: post op T-3/confused/weak Time Seen by Provider: 02/23/23 09:57 Source: patient and family Mode of arrival: Ambulatory History of Present Illness HPI narrative: Patient brought here by has not for complaints of intermittent occipital headache lasting about 30 minutes on average with confusion that started yesterday. No neck pain no nausea or vomiting. No unilateral limb numbness tingling or weakness. This is atypical for patient's complaints. Patient did have cataract surgery this past Sunday and had follow up on Sunday this week. That has been reassuring. Patient never had these complaints before. No urinary complaints. No recent fever chills vomiting diarrhea. Currently does not have a headache. Blood pressure noted. She does have labile blood pressure according to , patient states she gets nervous at office visits in blood pressure will elevate. Currently fast exam is negative. Does have tingling to the lips and tongue bilaterally Related Data Home Medications Medication Instructions Recorded Confirmed cyclosporine 0.05 % eye drops in a 1 drp EYE-BOTH BID 01/19/23 02/24/23 dropperette (Restasis) estradiol 0.01% (0.1 mg/gram) 1 g vaginal QWEEK PRN vaginal 01/19/23 02/24/23 vaginal cream atrophy cetirizine 10 mg capsule (Zyrtec) 10 mg PO DAILY PRN Constipation 02/23/23 02/24/23 cholecalciferol (vitamin D3) 50 50 mcg PO DAILY 02/23/23 02/24/23 mcg (2,000 unit) tablet fluticasone propionate 50 1 spray intranasal PRN PRN Allergy 02/23/23 02/24/23 mcg/actuation nasal Symptoms spray,suspension (Allergy Relief (fluticasone)) psyllium 1 packet PO DAILY 02/23/23 02/24/23 Previous Rx's Medication Instructions Recorded betamethasone, augmented 0.05 % 1 applic topical .COMPLEX [place] 04/06/22 topical gel sclerosis #15 grams apixaban 5 mg tablet (Eliquis) 5 mg PO BID #60 tabs 02/25/23 aspirin 81 mg tablet,delayed 81 mg PO DAILY #30 tabs 02/25/23 release atorvastatin 20 mg tablet (Lipitor) 80 mg PO BEDTIME #120 tabs 02/25/23 clopidogrel 75 mg tablet 75 mg PO DAILY #20 tabs 02/25/23 famotidine 20 mg tablet (Pepcid AC) 20 mg PO BID #60 tabs 02/25/23 losartan 50 mg tablet 50 mg PO DAILY #30 tabs 02/25/23 Allergies Allergy/AdvReac Type Severity Reaction Status Date / Time nitrofurantoin Allergy Intermediate Verified 02/24/23 14:12 [From MACRODANTIN] Review of Systems Review of Systems Narrative: GENERAL: negative chills, fatigue, malaise, fever, sweats. HEENT: negative sinus pain, ear pain, sore throat RESPIRATORY: negative dyspnea, cough CARDIOVASCULAR: negative chest pain, palpitations GASTROINTESTINAL: negative nausea, vomiting, abdominal pain : negative dysuria, frequency, hematuria MUSCULOSKELETAL: negative muscle or bony pain SKIN: negative rash, skin lesions NEUROLOGIC: negative weakness, positive numbness, positive confusion, positive headache ROS Unobtainable: All systems reviewed & are unremarkable except as noted in HPI and below Patient History Medical History HLD (hyperlipidemia) Lichen sclerosus of female genitalia Surgical History No pertinent past surgical history Family History Father Diabetes mellitus Mother No pertinent past medical history Social History household members: spouse Smoking Status: Never smoker alcohol intake: current substance use type: does not use Smoking Status: Never smoker alcohol intake frequency: 0-2 drinks per day Substance Use Type: does not use Exam Narrative Exam Narrative: GENERAL: in no distress, not toxic not dyspneic HEAD: Normocephalic. EYES: Pupils equal round ENT: Mucous membranes moist. NECK: Trachea midline. CARDIOVASCULAR: Regular rate and rhythm without murmurs RESPIRATORY: Clear to auscultation. Breath sounds equal bilaterally. No wheezes, rales, or rhonchi. GASTROINTESTINAL: Abdomen soft, non-tender EXTREMITIES: No gross deformities. BACK: No flank tenderness. NEURO: AOx4. Clear speech no facial droop. ?Light touch intact to bilateral face hands and legs. ?Strong equal continuous miner bilaterally and ankle flexion hip flexion and knee flexion. ?Strong bilateral patellar reflexes. ?No pronator drift. ? SKIN: Warm and dry PSYCH: Not anxious, is cooperative Initial Vital Signs Initial Vital Signs: Vital Signs Pulse Rate 77 02/23/23 09:24 Blood Pressure 205/87 H 02/23/23 09:24 Pulse Oximetry 97 02/23/23 09:24 Scores NIH Stroke Scale Level of Conciousness: Alert, keenly responsive Ask month/age: Answers both questions correctly. Open/close eyes, close hand: Performs both tasks correctly Best gaze horizontal: Normal Visual machado: No visual loss Facial palsy: Normal symetrical movement Left arm drift: No drift for full 10 sec Right arm drift: No drift for full 10 sec Left leg drift: No drift for full 5 sec Right leg drift: No drift for full 5 sec Limb ataxia: Absent Sensory on face/arms/legs: Normal, no sensory loss Best language: No aphasia, normal Dysarthria: Normal Extinction or inattention: No abnormality Total NIH Stroke scale score: 0 Course Orders Ordered: Discontinued Medications Acetaminophen (Acetaminophen 325 Mg Tablet) 650 mg PO NOW ONE Stop: 02/23/23 13:04 Last Admin: 02/23/23 13:12 Dose: 650 mg Documented By: VICENTE Aspirin (Aspirin 81 Mg Chew Tab) 324 mg PO NOW ONE Stop: 02/23/23 11:58 Last Admin: 02/23/23 13:08 Dose: Not Given Documented By: NR Clopidogrel Bisulfate (Clopidogrel 75 Mg Tablet) 300 mg PO NOW ONE Stop: 02/23/23 11:58 Last Admin: 02/23/23 13:08 Dose: Not Given Documented By: NR Sodium Chloride (Normal Saline 0.9%) 500 mls @ 1,000 mls/hr IV BOLUS ONE Stop: 02/23/23 10:04 Last Infusion: 02/23/23 10:36 Dose: 0 mls/hr Documented By: Admin: 02/23/23 10:03 Dose: 1,000 mls/hr Documented By: NR Metoprolol Tartrate (Metoprolol Ir 25 Mg Tablet) 25 mg PO NOW ONE Stop: 02/23/23 10:47 Last Admin: 02/23/23 11:17 Dose: 25 mg Documented By: NR Vital Signs Vital signs: Vital Signs - 8 hr 02/23/23 09:45 02/23/23 09:59 02/23/23 09:59 Pulse Rate 70 70 Respiratory Rate 28 H 13 Blood Pressure 183/86 H Pulse Oximetry 98 98 02/23/23 10:00 02/23/23 10:00 02/23/23 10:15 Pulse Rate 69 67 Respiratory Rate 24 34 H Blood Pressure 199/86 H Pulse Oximetry 98 98 02/23/23 10:16 02/23/23 10:16 02/23/23 10:30 Pulse Rate 68 Respiratory Rate 30 H Blood Pressure 218/94 H 191/86 H Pulse Oximetry 100 02/23/23 10:30 02/23/23 11:12 02/23/23 11:13 Pulse Rate 70 71 Respiratory Rate 26 H Blood Pressure 195/84 H Pulse Oximetry 97 93 02/23/23 11:13 02/23/23 11:15 02/23/23 11:30 Pulse Rate 69 70 Respiratory Rate Blood Pressure 145/71 H Pulse Oximetry 97 98 02/23/23 11:30 02/23/23 11:45 02/23/23 12:03 Pulse Rate 63 61 66 Respiratory Rate Blood Pressure Pulse Oximetry 96 97 02/23/23 12:05 02/23/23 12:05 02/23/23 12:15 Pulse Rate 64 61 Respiratory Rate Blood Pressure 200/84 H Pulse Oximetry 98 95 02/23/23 12:26 02/23/23 12:30 02/23/23 12:58 Pulse Rate 65 62 Respiratory Rate Blood Pressure 178/84 H Pulse Oximetry 97 95 02/23/23 13:00 02/23/23 13:00 02/23/23 13:15 Pulse Rate 66 63 Respiratory Rate Blood Pressure 184/82 H Pulse Oximetry 97 97 02/23/23 13:30 02/23/23 13:30 02/23/23 13:45 Pulse Rate 59 L 61 Respiratory Rate Blood Pressure 168/76 H Pulse Oximetry 98 95 02/23/23 14:00 02/23/23 14:00 02/23/23 14:15 Pulse Rate 63 64 Respiratory Rate Blood Pressure 176/82 H Pulse Oximetry 95 96 02/23/23 14:30 02/23/23 14:30 02/23/23 14:45 Pulse Rate 63 62 Respiratory Rate Blood Pressure 174/80 H Pulse Oximetry 98 97 02/23/23 15:00 02/23/23 15:01 02/23/23 15:01 Pulse Rate 61 65 Respiratory Rate Blood Pressure 171/80 H Pulse Oximetry 95 97 02/23/23 15:15 02/23/23 15:30 02/23/23 15:30 Pulse Rate 58 L 61 Respiratory Rate Blood Pressure 187/86 H Pulse Oximetry 95 97 02/23/23 15:48 02/23/23 16:00 02/23/23 16:00 Pulse Rate 68 58 L Respiratory Rate Blood Pressure 193/78 H Pulse Oximetry 97 98 02/23/23 16:15 02/23/23 16:27 02/23/23 16:31 Pulse Rate 60 63 Respiratory Rate Blood Pressure 213/88 H Pulse Oximetry 97 98 02/23/23 17:03 Pulse Rate Respiratory Rate Blood Pressure 162/80 H Pulse Oximetry MDM - Altered Mental Status Lab Data 02/23/23 09:30 02/23/23 09:30 Labs: Lab Results 02/23/23 02/23/23 02/23/23 Range/Units 09:30 09:30 10:36 WBC 9.8 (4.5-11.0) X10^3/uL RBC 5.19 (4.0-5.2) X10^6/uL Hgb 14.8 (12.0-16.0) g/dL Hct 45.0 (36-46) % MCV 86.8 (80-100) fL MCH 28.5 (26-34) PG MCHC 32.8 (30-36) % RDW 13.8 (11.6-14.8) % Plt Count 244 (150-400) X10^3/uL Neut % (Auto) 71.6 (50-75) % Lymph % (Auto) 20.8 L (25-40) % [place] % (Auto) 6.5 (3-14) % Eos % (Auto) 0.4 L (2-4) % Baso % (Auto) 0.7 (0-2) % Neut # (Auto) 7000 (4983-9602) /uL Lymph # (Auto) 2000 (1972-6161) /uL [place] # (Auto) 600 (0-900) /uL Eos # (Auto) 0 (0-450) /uL Baso # (Auto) 100 (0-100) /uL Sodium 133 L (137-145) mmol/L Potassium 4.0 (3.4-5.1) mmol/L Chloride 97 L (98-107) mmol/L Carbon Dioxide 28 (22-32) mmol/L BUN 8 (7-17) mg/dL Creatinine 0.58 (0.52-1.04) mg/dL Estimated GFR > 60 (>60) mL/min BUN/Creatinine Ratio 13.8 (6-22) Glucose 123 H (80-110) mg/dL Calcium 9.3 (8.4-10.2) mg/dL Total Bilirubin 0.9 (0.2-1.3) mg/dL AST 32 (14-36) IU/L ALT 23 (<35) IU/L Alkaline Phosphatase 76 (38-126) U/L Total Protein 8.0 (6.3-8.2) g/dL Albumin 4.7 (3.5-5.0) g/dL Globulin 3.3 (1.7-4.1) g/dL Albumin/Globulin Ratio 1.4 (1.0-2.8) U Opiates 300ng/mL cut Negative (Negative) Ur Oxycodone Screen Negative (Negative) Urine Methadone Screen Negative (Negative) Ur Barbiturates Screen Negative (Negative) U Tricyclic Antidepress Negative (Negative) Ur Phencyclidine Scrn Negative (Negative) Ur Amphetamines Screen Negative (Negative) U Methamphetamines Scrn Negative (Negative) Ur MDMA Scrn (Ecstasy) Negative (Negative) U Benzodiazepines Scrn Negative (Negative) Urine Cocaine Screen Negative (Negative) U Marijuana (THC) Screen Negative (Negative) SARS-CoV-2 (PCR) (Negative) 02/23/23 Range/Units 11:18 WBC (4.5-11.0) X10^3/uL RBC (4.0-5.2) X10^6/uL Hgb (12.0-16.0) g/dL Hct (36-46) % MCV (80-100) fL MCH (26-34) PG MCHC (30-36) % RDW (11.6-14.8) % Plt Count (150-400) X10^3/uL Neut % (Auto) (50-75) % Lymph % (Auto) (25-40) % [place] % (Auto) (3-14) % Eos % (Auto) (2-4) % Baso % (Auto) (0-2) % Neut # (Auto) (6159-4258) /uL Lymph # (Auto) (3131-8824) /uL [place] # (Auto) (0-900) /uL Eos # (Auto) (0-450) /uL Baso # (Auto) (0-100) /uL Sodium (137-145) mmol/L Potassium (3.4-5.1) mmol/L Chloride (98-107) mmol/L Carbon Dioxide (22-32) mmol/L BUN (7-17) mg/dL Creatinine (0.52-1.04) mg/dL Estimated GFR (>60) mL/min BUN/Creatinine Ratio (6-22) Glucose (80-110) mg/dL Calcium (8.4-10.2) mg/dL Total Bilirubin (0.2-1.3) mg/dL AST (14-36) IU/L ALT (<35) IU/L Alkaline Phosphatase (38-126) U/L Total Protein (6.3-8.2) g/dL Albumin (3.5-5.0) g/dL Globulin (1.7-4.1) g/dL Albumin/Globulin Ratio (1.0-2.8) U Opiates 300ng/mL cut (Negative) Ur Oxycodone Screen (Negative) Urine Methadone Screen (Negative) Ur Barbiturates Screen (Negative) U Tricyclic Antidepress (Negative) Ur Phencyclidine Scrn (Negative) Ur Amphetamines Screen (Negative) U Methamphetamines Scrn (Negative) Ur MDMA Scrn (Ecstasy) (Negative) U Benzodiazepines Scrn (Negative) Urine Cocaine Screen (Negative) U Marijuana (THC) Screen (Negative) SARS-CoV-2 (PCR) Negative (Negative) Point of Care Testing Glucose POC 128 Urine Dip Bedside Urine Glucose Negative Bedside Urine Bilirubin - Negative Bedside Urine Ketone - Negative Urine Specific [place] 1.005 Bedside Urine Occult Blood - Negative Bedside Urine pH 6.5 Bedside Urine Protein - Negative Bedside Urine Urobilinogen - Negative Bedside Urine Nitrite - Negative Bedside Urine Leukocytes - Negative Esterase Imaging Data MRI brain: Radiologist's Impression: PROCEDURE:? MR HEAD/BRAIN WO CON ? INDICATIONS:? ams ? TECHNIQUE:? Non-contrast axial T1 spin echo, axial T2 fast spin echo, sagittal and axial FLAIR, coronal T2 fast spin echo, axial gradient echo, axial diffusion and ADC through the brain.? ? COMPARISON:? [facility], CT, CT ANGIO HEAD AND NECK, 02/23/2023, 9:50.? [facility], CT, CT HEAD/BRAIN WO CON, 02/23/2023, 9:50. ? FINDINGS:? Image quality:? This examination is limited by involuntary motion artifact.? ? CSF spaces:? Ventricles appear symmetric in size and shape.? Basal cisterns are patent.? No extra-axial fluid collections.? ? Brain:? Small foci of abnormal increased diffusion weighted signal can be seen involving the posterior left cerebral hemisphere as well as the left thalamus.? Mild developing T2 weighted signal can be seen at these sites. ? No intracranial bleeds or mass effects.? There is cerebral volume loss for age.? There are periventricular and deep white matter chronic small vessel ischemic changes.? Brainstem appears normal.? No chronic ischemic insults.? Normal intravascular flow voids are present.? ? Skull and face:? Calvarial bone marrow is normal in signal.? Orbits are normal.? ? Sinuses:? Moderate mucosal thickening can be seen involving the posterior right ethmoid air cells.? Minimal mucosal thickening is seen elsewhere within the paranasal sinuses.? There is mild mastoid air cell fluid seen on the right. ? ? ? IMPRESSION:? ? Several small foci of subacute infarction can be seen on the left. The appearance is most consistent with an embolic phenomenon.? ? Dictated by: Wali Trejo M.D. on 02/23/2023 at 10:12 ? ? Approved by: Wali Trejo M.D. on 02/23/2023 at 10:16 ? CT scan - head: Radiologist's Impression: PROCEDURE:? CT HEAD/BRAIN WO CON ? INDICATIONS:? headache ? confusion w/o trauma. ? TECHNIQUE:? Noncontrast 4.5 mm thick angled axial sections acquired from the foramen magnum to the vertex, with coronal and sagittal reformats.? For radiation dose reduction, the following was used:? automated exposure control, adjustment of mA and/or kV according to patient size.? ? COMPARISON:? [facility], CT, CT HEAD/BRAIN WO CON, 01/19/2023, 9:00. ? FINDINGS:? Image quality:? Excellent.? ? CSF spaces:? Basal cisterns are patent.? No extra-axial fluid collections.? The ventricles are symmetric in size and shape.? ? Brain:? No intracranial bleeds or masses.? There is cerebral volume loss for age, with resultant ventricular and sulcal prominence.? There are periventricular and deep white matter chronic small vessel ischemic changes.? There is intracranial internal carotid artery atherosclerosis.? ? Skull and face:? Calvarium and visualized facial bones appear intact, without suspicious lesions.? ? Sinuses:? Visualized sinuses and mastoids are clear.? ? IMPRESSION:? ? 1. No acute intracranial process. ? 2. Moderate atrophy and chronic microvascular ischemic changes. ? ? ? Dictated by: Irlanda Roque M.D. on 02/23/2023 at 10:29 ? ? Approved by: Irlanda Roque M.D. on 02/23/2023 at 10:30 ? CTA - brain/neck: Radiologist's Impression: PROCEDURE:? CT ANGIO HEAD AND NECK ? INDICATIONS:? acute confusion ? headache, no trauma ? TECHNIQUE:? ?After the administration of intravenous contrast, 1 mm thick sections acquired from the aortic arch through the [place].? Post-contrast 4.5 mm thick sections then re-acquired from the foramen magnum to the vertex.? 3-dimensional [id number] (MIP) and/or volume rendering reformats were acquired of the central intracranial vasculature and neck separately. For radiation dose reduction, the following was used:? automated exposure control, adjustment of mA and/or kV according to patient size.? ? COMPARISON:? [facility], CT, CT HEAD/BRAIN WO CON, 02/23/2023, 9:50.? [facility], CT, CT HEAD/BRAIN WO CON, 01/19/2023, 9:00. ? FINDINGS:? Image quality:? Excellent.? ? BRAIN:? The ventricular system and cortical sulci demonstrate atrophy, consistent for the patient's stated age. There are areas of hypodensity within the periventricular and subcortical white matter.? There is no acute intra-or extra axial fluid collection. No acute hemorrhage, mass lesion or midline shift. Brainstem is unremarkable. Globes are symmetrical. Sinuses demonstrate chronic ethmoid mucosal thickening.. Osseous structures are intact. ? HEAD CT ANGIOGRAPHY:? Anterior circulation:? There is moderate bilateral, left greater than right stenosis of the supraclinoid internal carotid arteries..? The flow within the paired anterior cerebral arteries is normal and symmetric.? The flow within the middle cerebral arteries is normal and symmetric.? The anterior communicating artery is seen.? No aneurysms are seen.? ? Posterior circulation:? There is a right vertebral artery dominance.? Visualized portions of the vertebral arteries demonstrate normal caliber, and join to form a normal appearing basilar artery.? Flow within the posterior cerebral arteries is normal and symmetric.? No aneurysms are seen.? ? NECK CT ANGIOGRAPHY:? Carotid system:? The great vessels demonstrate a conventional anatomy as they arise from the aortic arch.? The origins of the common carotid arteries appear patent.? The common carotid arteries demonstrate normal caliber and courses.? The bifurcation regions are both widely patent.? The internal carotid arteries demonstrate normal calibers and courses.? ? Posterior circulation:? The origins of the vertebral arteries both appear widely patent.? The more superior extracranial portions of both vertebral arteries also demonstrate normal courses and calibers.? They join to form a normal appearing basilar artery.? ? Soft tissues:? Visualized neck soft tissues demonstrate no suspicious abnormalities.? ? Bones:? No suspicious bony lesions.? Visualized cervical spine appears normally aligned.? IMPRESSION:? ? 1. No acute intracranial process. ? 2. Moderate atrophy and chronic microvascular ischemic changes. ? 3. No areas of hemodynamically significant stenosis, vascular occlusion or aneurysmal dilation within the posterior circulation.? Bilateral moderate supraclinoid internal carotid artery stenosis is present. ? 4. No areas of hemodynamically significant stenosis, vascular occlusion or aneurysmal dilation within the neck vasculature. ? Any quantitative measurements of stenosis were performed using NASCET criteria.? ? ? Dictated by: Irlanda Roque M.D. on 02/23/2023 at 10:31 ? ? Approved by: Irlanda Roque M.D. on 02/23/2023 at 10:34 ? MDM Narrative Medical decision making narrative: After history and exam CBC CMP troponin EKG CT angiogram head and neck metoprolol ordered, normal saline, MRI brain ordered, echocardiogram [facility] CC: Headache confusion Complicating co-morbidities: Recent eye surgery Data collected from: Patient and Medical records reviewed: No recent visits for this complaint Differential considered: Includes but not limited to stroke TIA complex migraine head bleed, hypertensive encephalopathy Exam documented above, pertinent findings include: Normal NIH score, no weakness on limbs Lab Test results independently reviewed as above. Pertinent findings: Sodium 133 potassium 4.0 chloride 97 glucose 123 white cell count 9.8 hemoglobin 14.8 hematocrit 45 Independently reviewed EKG as above normal sinus rhythm rate [address] elevation or depression Imaging studies independently reviewed: MRI brain shows subacute multiple left infarct, echocardiogram no acute process CT head and CT angiogram head and neck no acute process Consultations: 1:59 a.m.. Spoke with [facility] stroke team neurology Dr. Fatima, recommends loading aspirin 324 mg, Plavix 300 mg and admit I did speak with Dr. Berg, hospitalist, he would like to see patient in the emergency department. He would like to see echocardiogram results as well. 5:[address] Berg, hospitalist, the echocardiogram is reassuring. He has done consult and instructs for patient to be discharged home and follow up with primary care next week for referral for Neurology as well as physical therapy. He would like patient to be started Eliquis 5 mg twice a day and losartan 25 mg daily. No other meds instructed Treatments: Normal saline metoprolol Re-evaluations: 11:50 a.m.. Updated patient and results. They do understand will need to be admitted. Outside window for tPA. Awaiting callback from Neurology with [facility]. 5:42 p.m.. I spoke with patient and . They have spoken with Dr. Berg and agree with treatment plan. They desire discharge home and follow up with primary care. is retired physician. He is comfortable with this plan and has resources to follow up next week. Discussion: Appropriate for discharge home. Patient has had MRI as well as echocardiogram here. Patient has been seen by hospitalist. Treatment plan in place and patient and are comfortable plan. Patient will start on anticoagulation next Sunday. Diagnosis: Subacute stroke Discharge Plan Departure Patient Disposition: Home Clinical Impression: Stroke Instructions: DI for Stroke-Ischemic Activity Restrictions/Additional Instructions: Please start Eliquis medication on Sunday. See family doctor next week for re-evaluation and referral for physical therapy. Blood pressure medication for losartan has been written for you as well. These medications have been sent to your pharmacy to picker. 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 atorvastatin [Lipitor] 20 mg Tablet 80 mg PO BEDTIME Qty: 120 0RF losartan 50 mg Tablet 50 mg PO DAILY Qty: 30 0RF clopidogrel 75 mg Tablet 75 mg PO DAILY Qty: 20 0RF famotidine [Pepcid AC] 20 mg Tablet 20 mg PO BID Qty: 60 0RF Referrals: Danay Vela DO [Primary Care Provider] - Stand Alone Forms: Patient Portal/API
[2023-02-23 10:54] LABS: UR Morphine/Opiate cutoff 300 Negative (Negative); Ur Creatinine Normal (Normal); Ur Specific Gravity Normal (Normal); Urine Amphetamines Negative (Negative); Urine Barbiturates Negative (Negative); Urine Benzodiazepines Negative (Negative); Urine Cocaine Negative (Negative); Urine MDMA Negative (Negative); Urine Methadone Negative (Negative); Urine Methamphetamines Negative (Negative); Urine Oxycodone Negative (Negative); Urine Phencyclidine Negative (Negative); Urine Tetrahydrocannabinol Negative (Negative); Urine Tricyclic Antidepressant Negative (Negative); Urine pH Normal (Normal)
[2023-02-23] MEDS: METOPROLOL IR 25 MG TABLET PO (11:17)
--- NOTE | 2023-02-23 12:20 | PC.NURSE ---
went into room to give pt ASA and plavix. Dr. Berg came into room and said, pt is having embolic stroke, please do not given Plavix and ASA. notified charge nurse. withheld medications. per provider
[2023-02-23 12:49] LABS: COVID19 -Nasal RAPID Negative (Negative)
[2023-02-23] MEDS: ACETAMINOPHEN 325 MG TABLET 650 MG PO (13:12)
--- NOTE | 2023-02-23 17:17 | PM.CN ---
History of Present Illness Consult details Date Patient Seen: 02/23/23 Time Patient Seen: 13:00 Chief complaint: post op T-3/confused/weak Narrative: This is a 77 year old female with PMH of HLD who presents to the emergency room with primary complaint of a posterior headache for the past couple of days. She complains of intermittent tingling of her head, lips and tongue, on both sides also for the past two days. 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 She denies any weakness, imbalance, or falls. She has had no slurred speech, or weakness. She does report intermittent bilateral hand tingling but this is more chronic. She reports some white coat hypertension in the past. Currently, the patient only feels some slight tingling around her tongue and lips. She denies any vision changes, fever, chills, lower extremity edema, chest pain, palpitations, shortness of breath. She did have a recent eye surgery a few days ago, but symptoms started more than 24 hours after. She had no evidence of atrial fibrillation according to the . In the emergency room, she was noted to be hypertensive, the remainder of her vital signs were unremarkable. She was given metorpolol tartrate. CT and CT angiogram of her head and neck showed no acute abnoramalities, with no carotid artery stenosis. MRI showed multiple small subacute infarcts on the left side of her brain in multiple locations, consistent with embolic phenomenon. Patient was able to ambulate on her own, and had an NIH of 0. Echocardiogram was performed which showed no PFO, no LV thrombus, but a dilated L atria and normal EF. I had long discussion with the patient regarding the risks and benefits of admission. Since she was very near her baseline with minimal neurological symptoms (and symptoms not seemingly correlated to her infarcts), and can easily follow up with her PCP next week, the spouse and the decided they would prefer discharge home with outpatient PT/OT referral, and recommendation for a holter monitor to confirm highly suspected afib. Meds Home Medications and Allergies Home Medications Medication Instructions Recorded Confirmed Type etodolac 400 mg tablet 400 mg PO DAILY 07/02/19 02/23/23 History famotidine 20 mg tablet 20 mg PO DAILY 09/22/20 02/23/23 History betamethasone, augmented 0.05 % 1 applic topical .COMPLEX [place] 04/06/22 02/23/23 Rx topical gel sclerosis #15 grams cyclosporine 0.05 % eye drops in a 1 drp EYE-BOTH BID 01/19/23 02/23/23 History dropperette (Restasis) estradiol 0.01% (0.1 mg/gram) 1 g vaginal QWEEK PRN vaginal 01/19/23 02/23/23 History vaginal cream atrophy simvastatin 40 mg tablet 20 mg PO BEDTIME 01/19/23 02/23/23 History apixaban 5 mg tablet (Eliquis) 5 mg PO BID #60 tabs 02/23/23 Rx cetirizine 10 mg capsule (Zyrtec) 10 mg PO DAILY PRN Constipation 02/23/23 02/23/23 History cholecalciferol (vitamin D3) 50 50 mcg PO DAILY 02/23/23 02/23/23 History mcg (2,000 unit) tablet fluticasone propionate 50 intranasal PRN PRN Allergy Symptoms 02/23/23 History mcg/actuation nasal spray,suspension (Allergy Relief (fluticasone)) losartan 25 mg tablet 25 mg PO DAILY #30 tabs 02/23/23 Rx psyllium packet PO DAILY 02/23/23 History turmeric 1,000 mg PO BID 02/23/23 02/23/23 History Allergies Allergy/AdvReac Type Severity Reaction Status Date / Time nitrofurantoin Allergy Intermediate Verified 02/23/23 09:31 [From MACRODANTIN] Review of Systems Review of Systems Narrative: All other systems reviewed with the patient and are negative unless otherwise stated. Exam Vital Signs (past 8 hours): - 02/23/23 09:29 02/23/23 09:24 02/23/23 09:24 Temperature 98.0 F Pulse Rate 80 77 Respiratory Rate 14 Blood Pressure 205/87 H 205/87 H Pulse Oximetry 99 97 Oxygen Delivery Method Room Air 02/23/23 09:26 02/23/23 09:26 02/23/23 09:30 Temperature Pulse Rate 71 Respiratory Rate Blood Pressure 194/86 H 192/89 H Pulse Oximetry 98 Oxygen Delivery Method Room Air 02/23/23 09:30 02/23/23 09:45 02/23/23 09:59 Temperature Pulse Rate 69 70 70 Respiratory Rate 28 H 13 Blood Pressure Pulse Oximetry 99 98 98 Oxygen Delivery Method 02/23/23 09:59 02/23/23 10:00 02/23/23 10:00 Temperature Pulse Rate 69 Respiratory Rate 24 Blood Pressure 183/86 H 199/86 H Pulse Oximetry 98 Oxygen Delivery Method 02/23/23 10:15 02/23/23 10:16 02/23/23 10:16 Temperature Pulse Rate 67 68 Respiratory Rate 34 H 30 H Blood Pressure 218/94 H Pulse Oximetry 98 100 Oxygen Delivery Method 02/23/23 10:30 02/23/23 10:30 02/23/23 11:12 Temperature Pulse Rate 70 71 Respiratory Rate 26 H Blood Pressure 191/86 H Pulse Oximetry 97 93 Oxygen Delivery Method 02/23/23 11:13 02/23/23 11:13 02/23/23 11:15 Temperature Pulse Rate 69 70 Respiratory Rate Blood Pressure 195/84 H Pulse Oximetry 97 98 Oxygen Delivery Method 02/23/23 11:30 02/23/23 11:30 02/23/23 11:45 Temperature Pulse Rate 63 61 Respiratory Rate Blood Pressure 145/71 H Pulse Oximetry 96 97 Oxygen Delivery Method 02/23/23 12:03 02/23/23 12:05 02/23/23 12:05 Temperature Pulse Rate 66 64 Respiratory Rate Blood Pressure 200/84 H Pulse Oximetry 98 Oxygen Delivery Method 02/23/23 12:15 02/23/23 12:26 02/23/23 12:30 Temperature Pulse Rate 61 65 Respiratory Rate Blood Pressure 178/84 H Pulse Oximetry 95 97 Oxygen Delivery Method 02/23/23 12:58 02/23/23 13:00 02/23/23 13:00 Temperature Pulse Rate 62 66 Respiratory Rate Blood Pressure 184/82 H Pulse Oximetry 95 97 Oxygen Delivery Method 02/23/23 13:15 02/23/23 13:30 02/23/23 13:30 Temperature Pulse Rate 63 59 L Respiratory Rate Blood Pressure 168/76 H Pulse Oximetry 97 98 Oxygen Delivery Method 02/23/23 13:45 02/23/23 14:00 02/23/23 14:00 Temperature Pulse Rate 61 63 Respiratory Rate Blood Pressure 176/82 H Pulse Oximetry 95 95 Oxygen Delivery Method 02/23/23 14:15 02/23/23 14:30 02/23/23 14:30 Temperature Pulse Rate 64 63 Respiratory Rate Blood Pressure 174/80 H Pulse Oximetry 96 98 Oxygen Delivery Method 02/23/23 14:45 02/23/23 15:00 02/23/23 15:01 Temperature Pulse Rate 62 61 Respiratory Rate Blood Pressure 171/80 H Pulse Oximetry 97 95 Oxygen Delivery Method 02/23/23 15:01 02/23/23 15:15 02/23/23 15:30 Temperature Pulse Rate 65 58 L Respiratory Rate Blood Pressure 187/86 H Pulse Oximetry 97 95 Oxygen Delivery Method 02/23/23 15:30 02/23/23 15:48 02/23/23 16:00 Temperature Pulse Rate 61 68 Respiratory Rate Blood Pressure 193/78 H Pulse Oximetry 97 97 Oxygen Delivery Method 02/23/23 16:00 02/23/23 16:15 02/23/23 16:27 Temperature Pulse Rate 58 L 60 63 Respiratory Rate Blood Pressure Pulse Oximetry 98 97 98 Oxygen Delivery Method 02/23/23 16:31 02/23/23 17:03 Temperature Pulse Rate Respiratory Rate Blood Pressure 213/88 H 162/80 H Pulse Oximetry Oxygen Delivery Method Oxygen Delivery Method Room Air Narrative Exam Narrative: General:? Patient is well developed and well nourished, in no distress at this time. HEENT:? Normocephalic, atraumatic, extraocular muscles intact, oral pharynx is clear and mucous membranes are moist. Neck: supple and symmetric, trachea is midline, no cervical adenopathy. Negative for JVD Chest:? Normal AP diameter and contour without kyphoscoliosis, no tachypnea, equal chest rise bilaterally. Lungs:? CTA b/l no wheezing rhonchi or rales. Cardio:?RRR no m/r/g. Abdomen: S NT ND. No CVA tenderness. Musculoskeletal:? Muscle strength and tone are equal within normal limits, no deformity. Extremities: No edema or joint effusions. No cyanosis or clubbing. Skin:? Pale,? Warm to touch,dry and intact without rashes, ulcerations or petechiae.? Neuro:? Alert, oriented,? sensation to touch intact in all extremities, no gross deficits noted of cranial nerves. rapid alternating movements smooth and coordinated, heel to morrison unremarkable. Psych:? Patient has a well-kept appearance, appropriate affect, mental status attitude thought context and judgment are appropriate for age. Objective ECG Impression: Normal sinus rhythm as interpreted by me. Labs 02/23/23 09:30 02/23/23 09:30 Labs: Laboratory Results - last 24 hr 02/23/23 02/23/23 02/23/23 09:30 09:30 10:36 WBC 9.8 RBC 5.19 Hgb 14.8 Hct 45.0 MCV 86.8 MCH 28.5 MCHC 32.8 RDW 13.8 Plt Count 244 Neut % (Auto) 71.6 Lymph % (Auto) 20.8 L [place] % (Auto) 6.5 Eos % (Auto) 0.4 L Baso % (Auto) 0.7 Neut # (Auto) 7000 Lymph # (Auto) 2000 [place] # (Auto) 600 Eos # (Auto) 0 Baso # (Auto) 100 Sodium 133 L Potassium 4.0 Chloride 97 L Carbon Dioxide 28 BUN 8 Creatinine 0.58 Estimated GFR > 60 BUN/Creatinine Ratio 13.8 Glucose 123 H Calcium 9.3 Total Bilirubin 0.9 AST 32 ALT 23 Alkaline Phosphatase 76 Total Protein 8.0 Albumin 4.7 Globulin 3.3 Albumin/Globulin Ratio 1.4 U Opiates 300ng/mL cut Negative Ur Oxycodone Screen Negative Urine Methadone Screen Negative Ur Barbiturates Screen Negative U Tricyclic Antidepress Negative Ur Phencyclidine Scrn Negative Ur Amphetamines Screen Negative U Methamphetamines Scrn Negative Ur MDMA Scrn (Ecstasy) Negative U Benzodiazepines Scrn Negative Urine Cocaine Screen Negative U Marijuana (THC) Screen Negative SARS-CoV-2 (PCR) 02/23/23 11:18 WBC RBC Hgb Hct MCV MCH MCHC RDW Plt Count Neut % (Auto) Lymph % (Auto) [place] % (Auto) Eos % (Auto) Baso % (Auto) Neut # (Auto) Lymph # (Auto) [place] # (Auto) Eos # (Auto) Baso # (Auto) Sodium Potassium Chloride Carbon Dioxide BUN Creatinine Estimated GFR BUN/Creatinine Ratio Glucose Calcium Total Bilirubin AST ALT Alkaline Phosphatase Total Protein Albumin Globulin Albumin/Globulin Ratio U Opiates 300ng/mL cut Ur Oxycodone Screen Urine Methadone Screen Ur Barbiturates Screen U Tricyclic Antidepress Ur Phencyclidine Scrn Ur Amphetamines Screen U Methamphetamines Scrn Ur MDMA Scrn (Ecstasy) U Benzodiazepines Scrn Urine Cocaine Screen U Marijuana (THC) Screen SARS-CoV-2 (PCR) Negative PFSH Medical History (Updated 02/23/23 @ 17:39 by Ab Berg DO) HLD (hyperlipidemia) Lichen sclerosus of female genitalia Surgical History (Updated 02/23/23 @ 17:39 by Ab Berg DO) No pertinent past surgical history Family History (Updated 02/23/23 @ 17:39 by Ab Berg DO) Father Diabetes mellitus Mother No pertinent past medical history Tobacco & Substance Use Smoking Status: Never smoker alcohol intake: current (rare/occasional) substance use type: does not use Assessment & Plan Assessment & Plan narrative: 1. 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 She thankfully has only vague tingling symptoms and perhaps a slight decline in her cognition as a result of these infarcts. - discussed reasons for admission including monitoring for atrial fibrillation, and primarily therapy evaluations. Also discussed that with our current data, subacute nature of her infarcts and lack of recent change combined with an echocardiogram without LA thrombus medication management would not change as a result of admission. Patient and wished to discharge home with plan for PCP follow up early next week, referral to outpatient PT and OT. This seemed reasonable given minimal decline from her baseline function, subacute nature of her infarct, and stability while in the emergency room. - given presumed atrial fibrillation based on available data (embolic CVA on MRI, left atrial dilatation on echo, no significant carotid disease on CTA), recommend initiation of apixaban 5 mg BID (to start on Monday 02/26 to reduce risk for hemorrhagic conversion of multiple small infarcts) and holter monitor with PCP to possibly confirm diagnosis of atrial fibrillation. - she was noted to be quite hypertensive, but when personally checked manually her BP was a more reasonable 162/80 while the monitor revealed a SBP >200 in the same arm. She was asymptomatic. 2. Hypertensive urgency - patient reports white coat hypertension, but suspect elevated BP at home. Recommend 25 mg losartan daily (patient with chronic cough from post nasal drip), home monitoring and PCP follow up next week. 3. HLD - continue home statin therapy Dispo: Discussed with spouse and patient, they elected for discharge home rather than admission at this time for therapy evaluations. Return precautions were discussed. Code: Full, surrogate is patient's spouse I have utilized all available immediate resources to obtain, update, or review the patient's current medications. I have reviewed patient's previous chart notes, laboratory evaluations, EKG, and imaging from her ER stay, along with her echocardiogram results. Additional history is obtained from ER provider along with patient's spouse. COVID-19 COVID-19 status: Not tested
== END 2023-02-23 18:00 | disposition home or self-care (01) ==
PROVIDERS: Emergency Provider Emergency Medicine; PCP Family Medicine
DX: I63.9 Cerebral infarction, unspecified (principal); Z79.01 Long term (current) use of anticoagulants; Z79.899 Other long term (current) drug therapy; Z20.822 Contact with and (suspected) exposure to COVID-19
CPT/HCPCS: 36415; 70450; 70496; 70498; 70551; 71045; 80053; 80305; 81003; 82962; 85025; 87635; 93005; 93306; 99285; C9803; Q9967

== ENCOUNTER 2023-02-24 12:07 | Inpatient (IN) | payer MEDICARE, OTHER, SELFPAY ==
[2023-02-24] VITALS (11 sets, daily range): BP systolic 145–154; BP diastolic 67–98; PULSE 60–74; RESP 15–20; TEMP 36.2–36.8; O2SAT 95–99; BMI 23.9
--- NOTE | 2023-02-24 12:26 | DI.RAD.S_ITS ---
PROCEDURE: XR CHEST 1V INDICATIONS: Possible stroke TECHNIQUE: One view of the chest was acquired. COMPARISON: [facility], CR, XR CHEST 1V, 02/23/2023, 9:36. FINDINGS: Surgical changes and devices: None. Lungs and pleura: Lungs are clear. No pleural effusions or pneumothorax. Mediastinum: Mediastinal contours appear normal. Heart size is normal. Atherosclerotic vascular calcification noted in the aortic arch. Bones and chest wall: No suspicious bony lesions. Overlying soft tissues appear unremarkable. Generalized decrease in osseous mineralization noted. IMPRESSION: No acute cardiopulmonary findings Approved by: Tarun Leslie M.D. on 02/24/2023 at 12:43
--- NOTE | 2023-02-24 12:26 | DI.CT.S_ITS ---
PROCEDURE: CT STROKE INDICATIONS: Positive BE-FAST, Stroke symptoms TECHNIQUE: Noncontrast 4.5 mm thick angled axial sections acquired from the foramen magnum to the vertex, with coronal reformats. For radiation dose reduction, the following was used: automated exposure control, adjustment of mA and/or kV according to patient size. COMPARISON: None. FINDINGS: Image quality: Excellent. CSF spaces: Basal cisterns are patent. No extra-axial fluid collections. The ventricles are symmetric in size and shape. Brain: No intracranial bleeds or masses. There is cerebral volume loss for age, with resultant ventricular and sulcal prominence. There are periventricular and deep white matter chronic small vessel ischemic changes. There is intracranial internal carotid artery atherosclerosis. Skull and face: Calvarium and visualized facial bones appear intact, without suspicious lesions. Sinuses: Visualized sinuses and mastoids are clear. IMPRESSION: 1. No acute intracranial abnormalities. 2. Cerebral volume loss and chronic microvascular ischemic changes. The result was discussed with Dr. Rodriguez. This study fulfills neurological imaging criteria for inclusion or exclusion of acute stroke therapies based on available published neurological guidelines. Dictated by: Colette Walker M.D. on 02/24/2023 at 12:48 Approved by: Coltete Walker M.D. on 02/24/2023 at 12:51
--- NOTE | 2023-02-24 12:27 | ED.NEUROSD ---
HPI - Neuro Symptoms/Deficit General Chief Complaint: Neuro Symptoms/Deficit Stated Complaint: here with stroke T-1/syptoms worsening Time Seen by Provider: 02/24/23 12:20 Source: patient Mode of arrival: Family Vehicle History of Present Illness HPI Narrative: Code stroke activity Last well known 830 this morning, 4 hours ago Patient brought in by from home. Patient just seen by knee and hospitalist yesterday for subacute stroke. Patient was discharged home from the emergency department after hospitalist has decided no indication for admission and was given prescription for losartan and Eliquis. Eliquis was to be started this upcoming Sunday. Symptoms for subacute stroke started on . This morning symptoms started 0830 in the morning. 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 Patient just had cataract surgery this past Sunday. Please see previous notes from yesterday. Patient did have CT head CT angiogram head and neck as well as MRI of the brain and echocardiogram yesterday. On Anticoagulants: No Related Data Home Medications Medication Instructions Recorded Confirmed cyclosporine 0.05 % eye drops in a 1 drp EYE-BOTH BID 01/19/23 02/24/23 dropperette (Restasis) estradiol 0.01% (0.1 mg/gram) 1 g vaginal QWEEK PRN vaginal 01/19/23 02/24/23 vaginal cream atrophy cetirizine 10 mg capsule (Zyrtec) 10 mg PO DAILY PRN Constipation 02/23/23 02/24/23 cholecalciferol (vitamin D3) 50 50 mcg PO DAILY 02/23/23 02/24/23 mcg (2,000 unit) tablet fluticasone propionate 50 1 spray intranasal PRN PRN Allergy 02/23/23 02/24/23 mcg/actuation nasal Symptoms spray,suspension (Allergy Relief (fluticasone)) psyllium 1 packet PO DAILY 02/23/23 02/24/23 Previous Rx's Medication Instructions Recorded betamethasone, augmented 0.05 % 1 applic topical .COMPLEX Lichen 04/06/22 topical gel sclerosis #15 grams apixaban 5 mg tablet (Eliquis) 5 mg PO BID #60 tabs 02/25/23 aspirin 81 mg tablet,delayed 81 mg PO DAILY #30 tabs 02/25/23 release atorvastatin 20 mg tablet (Lipitor) 80 mg PO BEDTIME #120 tabs 02/25/23 clopidogrel 75 mg tablet 75 mg PO DAILY #20 tabs 02/25/23 famotidine 20 mg tablet (Pepcid AC) 20 mg PO BID #60 tabs 02/25/23 losartan 50 mg tablet 50 mg PO DAILY #30 tabs 02/25/23 Allergies Allergy/AdvReac Type Severity Reaction Status Date / Time nitrofurantoin Allergy Intermediate Verified 02/24/23 14:12 [From MACRODANTIN] Review of Systems Review of Systems Narrative: GENERAL: negative chills, fatigue, malaise, fever, sweats. HEENT: negative sinus pain, ear pain, sore throat RESPIRATORY: negative dyspnea, cough CARDIOVASCULAR: negative chest pain, palpitations GASTROINTESTINAL: negative nausea, vomiting, abdominal pain : negative dysuria, frequency, hematuria MUSCULOSKELETAL: negative muscle or bony pain SKIN: negative rash, skin lesions NEUROLOGIC: negative weakness, numbness, positive headache, positive vision changes ROS Unobtainable: All systems reviewed & are unremarkable except as noted in HPI and below Hematologic/Lymphatic On Anticoagulants: No Patient History Medical History HLD (hyperlipidemia) Lichen sclerosus of female genitalia Surgical History No pertinent past surgical history Family History Father Diabetes mellitus Mother No pertinent past medical history Social History household members: spouse Smoking Status: Never smoker alcohol intake: current substance use type: does not use Smoking Status: Never smoker alcohol intake frequency: 0-2 drinks per day Substance Use Type: does not use Exam Narrative Exam Narrative: GENERAL: in no distress, not toxic not dyspneic HEAD: Normocephalic. EYES: Pupils equal round ENT: Mucous membranes moist. NECK: Trachea midline. CARDIOVASCULAR: Regular rate and rhythm without murmurs RESPIRATORY: Clear to auscultation. Breath sounds equal bilaterally. No wheezes, rales, or rhonchi. GASTROINTESTINAL: Abdomen soft, non-tender EXTREMITIES: No gross deformities. BACK: No flank tenderness. NEURO: AOx4. Fast exam is negative. Clear speech no facial droop light touch intact bilateral face hands and legs. Steady self gait in hallway from triage to her room. Negative pronator drift. [id number] intact. Isolating each eye patient does have ability to see wiggling fingers on temporal and nasal machado in both eyes individually. SKIN: Warm and dry PSYCH: Not anxious, is cooperative Initial Vital Signs Initial Vital Signs: Vital Signs Temperature 97.1 F L 02/24/23 12:15 Pulse Rate 74 02/24/23 12:15 Respiratory Rate 20 02/24/23 12:15 Blood Pressure 151/98 H 02/24/23 12:15 Pulse Oximetry 96 02/24/23 12:15 Oxygen Delivery Method Room Air 02/24/23 12:15 Scores NIH Stroke Scale Level of Conciousness: Alert, keenly responsive Ask month/age: Answers both questions correctly. Open/close eyes, close hand: Performs both tasks correctly Best gaze horizontal: Normal Visual machado: No visual loss Facial palsy: Normal symetrical movement Left arm drift: No drift for full 10 sec Right arm drift: No drift for full 10 sec Left leg drift: No drift for full 5 sec Right leg drift: No drift for full 5 sec Limb ataxia: Absent Sensory on face/arms/legs: Normal, no sensory loss Best language: No aphasia, normal Dysarthria: Normal Extinction or inattention: No abnormality Total NIH Stroke scale score: 0 Course Orders Ordered: Discontinued Medications Acetaminophen (Acetaminophen 325 Mg Tablet) 650 mg PO Q6H PRN PRN Reason: Fever/Mild Pain (1-10 Last Admin: 02/24/23 21:43 Dose: 650 mg Documented By: JOSE Apixaban (Apixaban 5 Mg Tablet) 5 mg PO BID [facility] Last Admin: 02/25/23 09:33 Dose: 5 mg Documented By: Admin: 02/24/23 21:44 Dose: 5 mg Documented By: JOSE Apixaban (Apixaban 5 Mg Tablet) 5 mg PO BID [facility] Aspirin (Aspirin 81 Mg Chew Tab) 324 mg PO NOW ONE Stop: 02/24/23 13:33 Last Admin: 02/24/23 14:17 Dose: 324 mg Documented By: MORAIMA Aspirin (Aspirin Ec 81 Mg Tablet) 81 mg PO DAILY [facility] Atorvastatin Calcium (Atorvastatin 20 Mg Tablet) 80 mg PO BEDTIME [facility] Last Admin: 02/24/23 21:44 Dose: 80 mg Documented By: JOSE Clopidogrel Bisulfate (Clopidogrel 75 Mg Tablet) 300 mg PO NOW ONE Stop: 02/24/23 13:33 Last Admin: 02/24/23 14:16 Dose: 300 mg Documented By: MORAIMA Clopidogrel Bisulfate (Clopidogrel 75 Mg Tablet) 75 mg PO DAILY [facility] Stop: 03/18/23 08:59 Last Admin: 02/25/23 09:33 Dose: 75 mg Documented By: TREASURE Famotidine (Famotidine 20 Mg Tablet) 20 mg PO BID [facility] Last Admin: 02/25/23 09:33 Dose: 20 mg Documented By: Admin: 02/24/23 21:44 Dose: 20 mg Documented By: JOSE Fluticasone Propionate (Fluticasone 120 [place]/16 Gm [place].Susp) 1 spray NASAL DAILY PRN PRN Reason: Allergic Symptoms Fluticasone Propionate (Fluticasone 120 [place]/16 Gm [place].Susp) 1 spray NASAL DAILY PRN PRN Reason: Allergic Symptoms Loratadine (Loratadine 10 Mg Tablet) 10 mg PO DAILY PRN PRN Reason: allergy Losartan Potassium (Losartan 25 Mg Tablet) 25 mg PO DAILY [facility] Losartan Potassium (Losartan 25 Mg Tablet) 25 mg PO DAILY [facility] Losartan Potassium (Losartan 50 Mg Tablet) 50 mg PO DAILY [facility] Last Admin: 02/25/23 11:29 Dose: 50 mg Documented By: TREASURE Non-Formulary Medication (Cetirizine [Zyrtec]) 10 mg PO DAILY PRN PRN Reason: Constipation Non-Formulary Medication (Psyllium) 1 packet PO DAILY [facility] Ondansetron HCl (Ondansetron 4 Mg Odt) 4 mg SL NOW PRN PRN Reason: Nausea And Vomiting Ondansetron HCl (Ondansetron 4 Mg/2 Ml Inj) 4 mg IV NOW PRN PRN Reason: Nausea And Vomiting Psyllium Hydrophilic Mucilloid (Psyllium Husk 1 Packet) 1 packet PO DAILY [facility] Last Admin: 02/25/23 10:06 Dose: Not Given Documented By: TREASURE Vitamin D (Cholecalciferol (Vitamin D3) 1,000 Unit Tablet) 2,000 unit PO DAILY [facility] Last Admin: 02/25/23 09:33 Dose: 2,000 unit Documented By: TREASURE Vitamin D (Cholecalciferol (Vitamin D3) 1,000 Unit Tablet) unit PO DAILY [facility] Vital Signs Vital signs: Vital Signs - 8 hr 02/24/23 12:15 02/24/23 12:29 Temperature 97.1 F L Pulse Rate 74 70 Respiratory Rate 20 18 Blood Pressure 151/98 H Pulse Oximetry 96 98 Oxygen Delivery Method Room Air Room Air MDM - Neuro Symptoms/Deficit Lab Data 02/25/23 05:31 02/25/23 05:31 Labs: Lab Results 02/24/23 02/24/23 02/24/23 Range/Units 12: 12: 12:23 WBC 11.1 H (4.5-11.0) X10^3/uL RBC 5.08 (4.0-5.2) X10^6/uL Hgb 14.4 (12.0-16.0) g/dL Hct 43.9 (36-46) % MCV 86.4 (80-100) fL MCH 28.4 (26-34) PG MCHC 32.8 (30-36) % RDW 13.8 (11.6-14.8) % Plt Count 239 (150-400) X10^3/uL Neut % (Auto) 72.4 (50-75) % Lymph % (Auto) 20.5 L (25-40) % [place] % (Auto) 6.5 (3-14) % Eos % (Auto) 0.2 L (2-4) % Baso % (Auto) 0.4 (0-2) % Neut # (Auto) 8000 H (4251-2702) /uL Lymph # (Auto) 2300 (8128-7240) /uL [place] # (Auto) 700 (0-900) /uL Eos # (Auto) 0 (0-450) /uL Baso # (Auto) 0 (0-100) /uL PT 11.9 (10.1-12.7) SECONDS INR 1.0 (0.9-1.3) APTT 34 (26-36) SECONDS Sodium 131 L (137-145) mmol/L Potassium 3.9 (3.4-5.1) mmol/L Chloride 96 L (98-107) mmol/L Carbon Dioxide 27 (22-32) mmol/L BUN 12 (7-17) mg/dL Creatinine 0.67 (0.52-1.04) mg/dL Estimated GFR > 60 (>60) mL/min BUN/Creatinine Ratio 17.9 (6-22) Glucose 126 H (80-110) mg/dL Calcium 9.3 (8.4-10.2) mg/dL Magnesium 2.0 (1.6-2.3) mg/dL Total Bilirubin 0.9 (0.2-1.3) mg/dL AST 27 (14-36) IU/L ALT 21 (<35) IU/L Alkaline Phosphatase 73 (38-126) U/L Total Creatine Kinase 74 (30-135) U/L CK-MB (CK-2) TNP CK-MB (CK-2) Rel Index TNP Troponin I < 0.012 (0.01-0.034) ng/mL NT-Pro-B Natriuret Pep (<450) pg/mL Total Protein 7.8 (6.3-8.2) g/dL Albumin 4.6 (3.5-5.0) g/dL Globulin 3.2 (1.7-4.1) g/dL Albumin/Globulin Ratio 1.4 (1.0-2.8) SARS-CoV-2 (PCR) (Negative) 02/24/23 02/24/23 Range/Units 12:23 12:56 WBC (4.5-11.0) X10^3/uL RBC (4.0-5.2) X10^6/uL Hgb (12.0-16.0) g/dL Hct (36-46) % MCV (80-100) fL MCH (26-34) PG MCHC (30-36) % RDW (11.6-14.8) % Plt Count (150-400) X10^3/uL Neut % (Auto) (50-75) % Lymph % (Auto) (25-40) % [place] % (Auto) (3-14) % Eos % (Auto) (2-4) % Baso % (Auto) (0-2) % Neut # (Auto) (3507-3225) /uL Lymph # (Auto) (3070-2941) /uL [place] # (Auto) (0-900) /uL Eos # (Auto) (0-450) /uL Baso # (Auto) (0-100) /uL PT (10.1-12.7) SECONDS INR (0.9-1.3) APTT (26-36) SECONDS Sodium (137-145) mmol/L Potassium (3.4-5.1) mmol/L Chloride (98-107) mmol/L Carbon Dioxide (22-32) mmol/L BUN (7-17) mg/dL Creatinine (0.52-1.04) mg/dL Estimated GFR (>60) mL/min BUN/Creatinine Ratio (6-22) Glucose (80-110) mg/dL Calcium (8.4-10.2) mg/dL Magnesium (1.6-2.3) mg/dL Total Bilirubin (0.2-1.3) mg/dL AST (14-36) IU/L ALT (<35) IU/L Alkaline Phosphatase (38-126) U/L Total Creatine Kinase (30-135) U/L CK-MB (CK-2) CK-MB (CK-2) Rel Index Troponin I (0.01-0.034) ng/mL NT-Pro-B Natriuret Pep 184 (<450) pg/mL Total Protein (6.3-8.2) g/dL Albumin (3.5-5.0) g/dL Globulin (1.7-4.1) g/dL Albumin/Globulin Ratio (1.0-2.8) SARS-CoV-2 (PCR) Negative (Negative) Imaging Data CT scan - head: Radiologist's Impression: PROCEDURE:? CT STROKE ? INDICATIONS:? Positive BE-FAST, Stroke symptoms ? TECHNIQUE:? Noncontrast 4.5 mm thick angled axial sections acquired from the foramen magnum to the vertex, with coronal reformats.? For radiation dose reduction, the following was used:? automated exposure control, adjustment of mA and/or kV according to patient size.? ? COMPARISON:? None. ? FINDINGS:? Image quality:? Excellent.? ? CSF spaces:? Basal cisterns are patent.? No extra-axial fluid collections.? The ventricles are symmetric in size and shape.? ? Brain:? No intracranial bleeds or masses.? There is cerebral volume loss for age, with resultant ventricular and sulcal prominence.? There are periventricular and deep white matter chronic small vessel ischemic changes.? There is intracranial internal carotid artery atherosclerosis.? ? Skull and face:? Calvarium and visualized facial bones appear intact, without suspicious lesions.? ? Sinuses:? Visualized sinuses and mastoids are clear.? ? IMPRESSION:? ? 1. No acute intracranial abnormalities. ? 2. Cerebral volume loss and chronic microvascular ischemic changes. ? The result was discussed with Dr. Rodriguez. ? This study fulfills neurological imaging criteria for inclusion or exclusion of acute stroke therapies based on available published neurological guidelines.? ? ? Dictated by: Colette Walker M.D. on 02/24/2023 at 12:48 ? ? Approved by: Colette Walker M.D. on 02/24/2023 at 12:51 ? Chest x-ray: Radiologist's Impression: PROCEDURE:? XR CHEST 1V ? INDICATIONS:? Possible stroke ? TECHNIQUE:? One view of the chest was acquired.? ? COMPARISON:? [facility], , XR CHEST 1V, 02/23/2023, 9:36. ? FINDINGS:? ? Surgical changes and devices:? None.? ? Lungs and pleura:? Lungs are clear.? No pleural effusions or pneumothorax.? ? Mediastinum:? Mediastinal contours appear normal.? Heart size is normal.? Atherosclerotic vascular calcification noted in the aortic arch. ? Bones and chest wall:? No suspicious bony lesions.? Overlying soft tissues appear unremarkable.? Generalized decrease in osseous mineralization noted. ? IMPRESSION:? ? No acute cardiopulmonary findings ? ? ? Approved by: Tarun Leslie M.D. on 02/24/2023 at 12:43? MDM Narrative Medical decision making narrative: After history and exam CBC CMP EKG troponin CT stroke, ordered MDM CC: Vision change Complicating co-morbidities: Subacute stroke Data collected from: Patient and Medical records reviewed: ER records from yesterday at this location Differential considered: Includes but not limited to stroke TIA Exam documented above, pertinent findings include: No visual deficits at this time Lab Test results independently reviewed as above. Pertinent findings: Hemoglobin 14 hematocrit 43 platelets 239 Sodium 131 potassium 3.9 glucose 126 troponin less than 0.012 Independently reviewed EKG as above normal sinus rhythm rate 71 Imaging studies independently reviewed: CT head without contrast no acute process, chest x-ray no acute process Consultations: 1:30 p.m.. Spoke with [facility] tele stroke, dr horne recommends repeat MRI admission start aspirin start Plavix. Do a BNP for any evidence of atrial fibrillation. 1:45 p.m.. Spoke with hospitalist, Dr. Melgoza. She will admit patient Treatments: Aspirin Plavix Re-evaluations: 1:40 p.m.. Spoke with patient and . They agree for admit. Patient denies any new visual changes. Discussion: Appropriate for admission. Will need antiplatelet therapy and repeat MRI and possible repeat echocardiogram. Diagnosis: TIA Discharge Plan Departure Patient Disposition: Admitted as Observation Clinical Impression: Transient cerebral ischemia Admit Date/Time: 02/24/23 14:15 Admit Provider: Bekah Tarango
[2023-02-24 12:31] LABS: Add Manual Diff / Slide Review NO; Basophils Absolute Auto 0 /uL (0-100); Basophils Percent Auto 0.4 % (0-2); Eosinophils Absolute Auto 0 /uL (0-450); Eosinophils Percent Auto 0.2 % (2-4); Hematocrit 43.9 % (36-46); Hemoglobin 14.4 g/dL (12.0-16.0); Lymphocytes Absolute Auto 2300 /uL (1100-4500); Lymphocytes Percent Auto 20.5 % (25-40); Mean Corpuscular HGB Conc 32.8 % (30-36); Mean Corpuscular Hemoglobin 28.4 PG (26-34); Mean Corpuscular Volume 86.4 fL (80-100); Monocytes Absolute Auto 700 /uL (0-900); Monocytes Percent Auto 6.5 % (3-14); Neutrophils Absolute Auto 8000 /uL (1500-7000); Neutrophils Percent Auto 72.4 % (50-75); Platelet Count 239 X10^3/uL (150-400); Red Blood Cell Count 5.08 X10^6/uL (4.0-5.2); Red Cell Distribution Width 13.8 % (11.6-14.8); White Blood Cell Count 11.1 X10^3/uL (4.5-11.0)
[2023-02-24 12:41] LABS: Prothrombin Time 11.9 SECONDS (10.1-12.7)
[2023-02-24 12:44] LABS: PTT Partial Thromboplastin Tim 34 SECONDS (26-36)
[2023-02-24 12:48] LABS: Alanine Aminotransferase 21 IU/L (<35); Albumin 4.6 g/dL (3.5-5.0); Albumin Globulin Ratio 1.4 (1.0-2.8); Alkaline Phosphatase 73 U/L (38-126); Aspartate Aminotransferase 27 IU/L (14-36); BUN Creatinine Ratio 17.9 (6-22); Bilirubin Total 0.9 mg/dL (0.2-1.3); Blood Urea Nitrogen 12 mg/dL (7-17); Calcium 9.3 mg/dL (8.4-10.2); Carbon Dioxide 27 mmol/L (22-32); Chloride 96 mmol/L (98-107); Creatine Kinase 74 U/L (30-135); Estimated Glomerular Filt Rate > 60 mL/min (>60); Globulin 3.2 g/dL (1.7-4.1); Glucose 126 mg/dL (80-110); HEMOLYSIS < 15 (0-50); Potassium 3.9 mmol/L (3.4-5.1); Sodium 131 mmol/L (137-145); Total Protein 7.8 g/dL (6.3-8.2)
[2023-02-24 13:00] LABS: Troponin I < 0.012 ng/mL (0.01-0.034)
[2023-02-24 13:34] LABS: COVID19 -Nasal RAPID Negative (Negative)
--- NOTE | 2023-02-24 13:42 | DI.MRI.S_ITS ---
PROCEDURE: MR HEAD/BRAIN WO CON INDICATIONS: TIA TECHNIQUE: Noncontrast axial T1 spin echo, axial T2 fast spin echo, sagittal and axial FLAIR, coronal T2 fast spin echo, axial gradient echo, axial diffusion and ADC through the brain. COMPARISON: [facility], CT, CT ANGIO HEAD AND NECK, 02/23/2023, 9:50. [facility], MR, MR HEAD/BRAIN WO CON, 02/23/2023, 10:39. FINDINGS: Image quality: Excellent. CSF Spaces: Basal cisterns are patent. No extra-axial fluid collections. Ventricles are normal in size and shape. Brain: No intracranial masses or hemorrhage. Brainstem appears normal. Normal intravascular flow voids are present. Several focal areas of restricted diffusion noted in the left [employer] distribution includes the left occipital pole, left side of the corpus callosum, left thalamus and mesial left temporal lobe. No evidence hemorrhagic conversion or mass effect Skull and face: Calvarium has normal marrow signal. Orbits appear normal. Sinuses: Sinuses and mastoids are clear. 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 on 02/24/2023 at 16:41
[2023-02-24 14:01] LABS: NT-proBNP (BNP-Adult 18+) 184 pg/mL (<450)
[2023-02-24] MEDS: CLOPIDOGREL 75 MG TABLET 300 MG PO (14:16)
[2023-02-24] MEDS: ASPIRIN 81 MG CHEW TAB 324 MG PO (14:17)
--- NOTE | 2023-02-24 14:32 | PC.NURSE ---
Addendum entered by Carri Ron R.N. 02/24/23 15:03: dr low notified of patients arrival to the floor. steven is doing the admission portion of admit. tele applied. call light w/in reach. Original Note: 1415: admit from ED via w/c. dx: CVA. patient a/o, voices needs. ind w/ mobility, ambulation. steady gait. denies pain/discomfort. per - she had eye surgery this past sunday w/ no problems w/ sedation or follow up. yesterday patient came to the ED w/ confusion (ie: where is the toothbrush, when the toothbrush was right in front of her) and today returned to ED w/ c/o of visual deficits. they are unclear if yesterdays confusion was contributed to the eye surgery and visual field deficits. NIH -1 for R eye vision field deficit. heminopsi
--- NOTE | 2023-02-24 15:47 | P.HP_ITS ---
History of Present Illness History of Present Illness Date Patient Seen: 02/24/23 Chief complaint: here with stroke T-1/syptoms worsening Narrative: Patient brought in by from home.? Patient just seen by ER and hospitalist yesterday for subacute stroke.? Patient was discharged to home from the emergency department after hospitalist had decided no indication for admission and was given prescription for losartan and Eliquis.? Eliquis was to be started this upcoming Sunday (2 days from now).? Symptoms for subacute stroke started on .? This morning, new symptoms started 829 in the morning.? 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 Patient just had cataract surgery this past Sunday.? Please see previous notes from ER note and Hospitalist note yesterday.? Patient did have CT head, CT angiogram head and neck as well as MRI of the brain and echocardiogram yesterday. On Anticoagulants: No, has not started Eliquis. Patient not complaining of any fever chills nausea vomiting or diaphoresis. No chest pain or palpitations. No shortness of breath wheezing or cough. No abdominal pain constipation or diarrhea. No dysuria or hematuria no difficulty with movement of any extremities. No neurological symptoms at the time of my examination. Not complaining of any mood changes or acute depression. [facility] Medical History HLD (hyperlipidemia) Lichen sclerosus of female genitalia Surgical History No pertinent past surgical history Family History Father Diabetes mellitus Mother No pertinent past medical history Social History household members: spouse Smoking Status: Never smoker alcohol intake: current substance use type: does not use Meds Home Medications and Allergies Home Medications Medication Instructions Recorded Confirmed Type etodolac 400 mg tablet 400 mg PO DAILY 07/02/19 02/24/23 History famotidine 20 mg tablet 20 mg PO DAILY 09/22/20 02/24/23 History betamethasone, augmented 0.05 % 1 applic topical .COMPLEX Lichen 04/06/22 02/24/23 Rx topical gel sclerosis #15 grams cyclosporine 0.05 % eye drops in a 1 drp EYE-BOTH BID 01/19/23 02/24/23 History dropperette (Restasis) estradiol 0.01% (0.1 mg/gram) 1 g vaginal QWEEK PRN vaginal 01/19/23 02/24/23 History vaginal cream atrophy simvastatin 40 mg tablet 20 mg PO BEDTIME 01/19/23 02/24/23 History apixaban 5 mg tablet (Eliquis) 5 mg PO BID #60 tabs 02/23/23 02/24/23 Rx cetirizine 10 mg capsule (Zyrtec) 10 mg PO DAILY PRN Constipation 02/23/23 02/24/23 History cholecalciferol (vitamin D3) 50 50 mcg PO DAILY 02/23/23 02/24/23 History mcg (2,000 unit) tablet fluticasone propionate 50 1 spray intranasal PRN PRN Allergy 02/23/23 02/24/23 History mcg/actuation nasal Symptoms spray,suspension (Allergy Relief (fluticasone)) losartan 25 mg tablet 25 mg PO DAILY #30 tabs 02/23/23 02/24/23 Rx psyllium 1 packet PO DAILY 02/23/23 02/24/23 History turmeric 1,000 mg PO BID 02/23/23 02/24/23 History Allergies Allergy/AdvReac Type Severity Reaction Status Date / Time nitrofurantoin Allergy Intermediate Verified 02/24/23 14:12 [From MACRODANTIN] Review of Systems Review of Systems Narrative: 14 system review completed and pertinent findings in the history of chief complaint. Exam Vital Signs (past 8 hours): - 02/24/23 12:15 02/24/23 12:29 02/24/23 12:36 Temperature 97.1 F L Pulse Rate 74 70 69 Respiratory Rate 20 18 Blood Pressure 151/98 H Pulse Oximetry 96 98 96 Oxygen Delivery Method Room Air Room Air Oxygen Flow Rate 02/24/23 12:45 02/24/23 13:00 02/24/23 13:15 Temperature Pulse Rate 71 69 66 Respiratory Rate Blood Pressure Pulse Oximetry 95 96 99 Oxygen Delivery Method Oxygen Flow Rate 02/24/23 13:30 02/24/23 13:45 02/24/23 14:00 Temperature Pulse Rate 60 64 71 Respiratory Rate 18 Blood Pressure Pulse Oximetry 99 99 98 Oxygen Delivery Method Oxygen Flow Rate 02/24/23 15:22 Temperature 98.0 F Pulse Rate 60 Respiratory Rate 18 Blood Pressure 145/67 H Pulse Oximetry 99 Oxygen Delivery Method Oxygen Flow Rate 0 Oxygen Delivery Method Room Air Oxygen Flow Rate 0 Narrative Exam Narrative: General:? Patient is well developed and well nourished, in no distress at this time. HEENT:? Normocephalic, atraumatic, extraocular muscles intact, oral pharynx is clear and mucous membranes are moist. Neck: supple and symmetric, trachea is midline, no cervical adenopathy. Negative for JVD Chest:? Normal AP diameter and contour without kyphoscoliosis, no tachypnea, equal chest rise bilaterally. Lungs:? CTA b/l no wheezing rhonchi or rales. Cardio:?RRR no m/r/g. Abdomen: S NT ND. No CVA tenderness. Musculoskeletal:? Muscle strength and tone are equal within normal limits, no deformity. Extremities: No edema or joint effusions. No cyanosis or clubbing. Skin:? Pale,? Warm to touch,dry and intact without rashes, ulcerations or petechiae.? Neuro:? Alert, oriented,? sensation to touch intact in all extremities, no gross deficits noted of cranial nerves. rapid alternating movements smooth and coordinated, heel to morrison unremarkable. Psych:? Patient has a well-kept appearance, appropriate affect, mental status attitude thought context and judgment are appropriate for age. Objective Labs 02/24/23 12:23 02/24/23 12:23 Labs: Laboratory Results - last 24 hr 02/24/23 02/24/23 02/24/23 12:23 12:23 12:23 WBC 11.1 H RBC 5.08 Hgb 14.4 Hct 43.9 MCV 86.4 MCH 28.4 MCHC 32.8 RDW 13.8 Plt Count 239 Neut % (Auto) 72.4 Lymph % (Auto) 20.5 L [place] % (Auto) 6.5 Eos % (Auto) 0.2 L Baso % (Auto) 0.4 Neut # (Auto) 8000 H Lymph # (Auto) 2300 [place] # (Auto) 700 Eos # (Auto) 0 Baso # (Auto) 0 PT 11.9 INR 1.0 APTT 34 Sodium 131 L Potassium 3.9 Chloride 96 L Carbon Dioxide 27 BUN 12 Creatinine 0.67 Estimated GFR > 60 BUN/Creatinine Ratio 17.9 Glucose 126 H Calcium 9.3 Magnesium 2.0 Total Bilirubin 0.9 AST 27 ALT 21 Alkaline Phosphatase 73 Total Creatine Kinase 74 CK-MB (CK-2) TNP CK-MB (CK-2) Rel Index TNP Troponin I < 0.012 NT-Pro-B Natriuret Pep Total Protein 7.8 Albumin 4.6 Globulin 3.2 Albumin/Globulin Ratio 1.4 SARS-CoV-2 (PCR) 02/24/23 02/24/23 12:23 12:56 WBC RBC Hgb Hct MCV MCH MCHC RDW Plt Count Neut % (Auto) Lymph % (Auto) [place] % (Auto) Eos % (Auto) Baso % (Auto) Neut # (Auto) Lymph # (Auto) [place] # (Auto) Eos # (Auto) Baso # (Auto) PT INR APTT Sodium Potassium Chloride Carbon Dioxide BUN Creatinine Estimated GFR BUN/Creatinine Ratio Glucose Calcium Magnesium Total Bilirubin AST ALT Alkaline Phosphatase Total Creatine Kinase CK-MB (CK-2) CK-MB (CK-2) Rel Index Troponin I NT-Pro-B Natriuret Pep 184 Total Protein Albumin Globulin Albumin/Globulin Ratio SARS-CoV-2 (PCR) Negative Assessment & Plan Assessment & Plan narrative: 1. New symptom today this morning with symptoms starting 0830 in the morning.? 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 Pending MRI for repeat assessment. No new findings on MRI therefore consistent with a TIA. We will treat as a TIA post subacute CVA. Patient will be prescribed apixaban 5 mg b.i.d. and clopidogrel 75 mg for a total of 21 days followed by aspirin 81 mg for life. 2. Subacute CVA, embolic, likely secondary to paroxysmal atrial fibrillation on previous presentation. Given appearance of MRI on previous presentation, embolic source from atrial fibrillation is highly suspected. She thankfully had only vague tingling symptoms and perhaps a slight decline in her cognition as a result of these infarcts. Echocardiogram without LA and thrombus medication m anagement would not change as a result of admission and based on this and the patient wishes the patient was discharged home to follow up with PCP the following week. Referral to outpatient PT and OT. This seemed reasonable given minimal decline from her baseline function, subacute nature of her infarct, and stability while in the emergency room. ? ?Given presumed atrial fibrillation based on available data (embolic CVA on MRI, left atrial dilatation on echo, no significant carotid disease on CTA), recommend initiation of apixaban 5 mg BID (to start on Monday 02/26 to reduce risk further ischemic event. This had not been initiated at the time of re- presentation to the ER. ? 3. Hypertensive status ?Patient reports white coat hypertension, but suspect elevated BP at home because reports that systolic is often 140 or slightly higher at home. Would be reasonable to initiate recommended losartan 25 mg daily as per the previous ER consultation. Monitor to ensure that the patient does not become hypotensive. 4. HLD - home statin therapy, simvastatin 20 mg was the patient's home dose. We will change to atorvastatin 80 mg daily due to the recent subacute stroke. 5. Lichen sclerosis. No active treatment expected during this hospital stay 6. Allergic rhinitis. Have patient's regular medication of fluticasone and cetirizine available as needed. 7. GERD continue famotidine 20 mg daily. We will increase to famotidine 20 mg daily due to the anticoagulation. 8. Constipation. Metamucil 1 package daily was patient's regular dose. Continue. 9. Home use of etodolac. This is an anti inflammatory NSAID and patient should discontinue use due to being on anticoagulation medication. Code: Full Surrogate is patient's spouse COVID status: Negative test today Disposition: Expect discharge to home once stable. I have utilized all available immediate resources to obtain, update, or review the patient's current medications. I have reviewed patient's previous chart notes, laboratory evaluations, EKG, and imaging from her ER stay, along with her echocardiogram results. Additional history is obtained from ER provider along with patient's spouse. Scores ABCD2 Age >= 60 years: yes Initial BP. Either SBP >= 140 or DBP >= 90.: yes Clinical features of the TIA: other symptoms Duration of symptoms: >= 60 minutes History of diabetes: no ABCD2 Score: 4 Quality VTE Deep Vein Thrombosis/Pulmonary Embolism Present on Admission: No MIPS - Admit I confirm the patient?s Advance Care Plan is present, Code status is documented, Surrogate decision maker is in patient?s record [If Yes, STOP here]: Yes MIPS - Meds 'Current medications' to include all prescriptions, [id number] products, herbals, cannabis/cannabidiol products, and vitamin/mineral/dietary (nutritional) supplements. I have utilized all available resources to obtain, update, or review the patient?s current medications. [If Yes, STOP here]: Yes
[2023-02-24] MEDS: ACETAMINOPHEN 325 MG TABLET 650 MG PO (21:43)
[2023-02-24] MEDS: FAMOTIDINE 20 MG TABLET PO (21:44)
[2023-02-24] MEDS: ATORVASTATIN 20 MG TABLET 80 MG PO (21:44)
[2023-02-24] MEDS: APIXABAN 5 MG TABLET PO (21:44)
[2023-02-25] VITALS: BP 126/67; PULSE 63; RESP 15; TEMP 36.3; O2SAT 95
[2023-02-25 04:00] VITALS: BP 135/67; PULSE 60; RESP 14; TEMP 36.4; O2SAT 97
[2023-02-25 05:49] LABS: Add Manual Diff / Slide Review NO; Basophils Absolute Auto 100 /uL (0-100); Eosinophils Absolute Auto 100 /uL (0-450); Eosinophils Percent Auto 1.5 % (2-4); Hematocrit 41.6 % (36-46); Hemoglobin 13.8 g/dL (12.0-16.0); Lymphocytes Absolute Auto 2200 /uL (1100-4500); Lymphocytes Percent Auto 36.1 % (25-40); Mean Corpuscular HGB Conc 33.1 % (30-36); Mean Corpuscular Hemoglobin 28.5 PG (26-34); Mean Corpuscular Volume 86.1 fL (80-100); Monocytes Absolute Auto 600 /uL (0-900); Monocytes Percent Auto 9.7 % (3-14); Neutrophils Absolute Auto 3200 /uL (1500-7000); Neutrophils Percent Auto 51.7 % (50-75); Platelet Count 215 X10^3/uL (150-400); Red Blood Cell Count 4.83 X10^6/uL (4.0-5.2); Red Cell Distribution Width 13.8 % (11.6-14.8); White Blood Cell Count 6.2 X10^3/uL (4.5-11.0)
[2023-02-25 06:02] LABS: BUN Creatinine Ratio 18.3 (6-22); Blood Urea Nitrogen 11 mg/dL (7-17); Calcium 8.8 mg/dL (8.4-10.2); Carbon Dioxide 26 mmol/L (22-32); Chloride 98 mmol/L (98-107); Cholesterol 181 mg/dL (140-199); Estimated Glomerular Filt Rate > 60 mL/min (>60); Glucose 103 mg/dL (80-110); HDL Cholesterol 60 mg/dL (40-60); HEMOLYSIS < 15 (0-50); LDL Cholesterol Calculated 96 mg/dL (<100); Potassium 3.7 mmol/L (3.4-5.1); Sodium 130 mmol/L (137-145); Triglycerides 124 mg/dL (35-150)
[2023-02-25 08:00] VITALS: BP 155/66; PULSE 62; RESP 18; TEMP 36.4; O2SAT 97
[2023-02-25] MEDS: FAMOTIDINE 20 MG TABLET PO (09:33)
[2023-02-25] MEDS: APIXABAN 5 MG TABLET PO (09:33)
[2023-02-25] MEDS: CHOLECALCIFEROL (VITAMIN D3) 1,000 UNIT TABLET 2000 UNIT PO (09:33)
[2023-02-25] MEDS: CLOPIDOGREL 75 MG TABLET PO (09:33)
--- NOTE | 2023-02-25 11:18 | CM.DANOTE ---
DCP: Case received, EMR reviewed and met with patient. Spouse, Peña, at bedside, who is a retired physician. Introduced self and role. Was able to obtain information regarding patient's baseline activity status at home prior to hospitalization. DCP assessment completed with information currently available. Patient is a 77 year old female who admitted yesterday afternoon to the care of the hospitalist team. PCP: Dr. Vela. Payer: confirmed: Medicare/[employer] [place]. Patient came to the hospital via private vehicle secondary to having symptoms of subacute CVA, that she was diagnosed with in the ER. Notes indicate that patient was seen, diagnosed with CVA, went home on blood thinners, but symptoms worsened. Spouse was concerned about homonymous hemianopia. Patient does hold diagnoses if subacute CVA. Met with patient in her room. She is alert and oriented, pleasant. Confirmed that she resides here in [place] with spouse, Peña, who is a retired physician. She is independent at her baseline, has not needed to use any DME, was just having some visual disturbances. P: DCP to continue to follow. Plan is home with spouse when deemed medically stable. Yun Deluca RN/Store Associate Discharge Planning/Care Management CM Discharge Assessment Start: 02/25/23 11:15 Freq: Status: Active Protocol: Document 02/25/23 11:15 (Rec: 02/25/23 11:18 [id number]) Discharge Planning Assessment Assigned School Superintendent Yun Deluca RN/Store Associate Advance Directives? Yes Advance Directives on File Yes History Provided By Patient,Medical Record Household Members spouse Type of transporation used prior to Drives own vehicle admit Independent with ADL's Yes Is patient alert and oriented? Yes Caregiver for Another No Barriers to Discharge No Comment Has supportive Discharge Plan Home Transportation Arrangement Spouse Referrals Initiated None needed Whiteboard Updated in Patient Room with Yes name and ext. # of School Superintendent Review Status In Process Next Review Type Continued Stay Review
[2023-02-25] MEDS: LOSARTAN 50 MG TABLET PO (11:29)
--- NOTE | 2023-02-25 11:43 | P.DS_ITS ---
History of Present Illness History of Present Illness Date Patient Seen: 02/25/23 Chief complaint: here with stroke T-1/syptoms worsening Narrative: Patient brought in by from home.? Patient just seen by ER and hospitalist yesterday for subacute stroke.? Patient was discharged to home from the emergency department after hospitalist had decided no indication for admission and was given prescription for losartan and Eliquis.? Eliquis was to be started this upcoming Sunday (2 days from now).? Symptoms for subacute stroke started on .? This morning, new symptoms started 08 in the morning.? 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 Patient just had cataract surgery this past Sunday.? Please see previous notes from ER note and Hospitalist note yesterday.? Patient did have CT head, CT angiogram head and neck as well as MRI of the brain and echocardiogram yesterday. On Anticoagulants: No, has not started Eliquis. Patient not complaining of any fever chills nausea vomiting or diaphoresis. No chest pain or palpitations. No shortness of breath wheezing or cough. No abdominal pain constipation or diarrhea. No dysuria or hematuria no difficulty with movement of any extremities. No neurological symptoms at the time of my examination. Not complaining of any mood changes or acute depression. Discharge Providers Provider Date of admission: 02/24/23 14:15 Discharge Date: 02/25/23 Primary care physician: Danay Vela DO Consults: 02/24/23 18:55 Consult to Occupational Therapy Evaluate & Treat Comment: Assess for any post stroke deficits Physician Instructions: Evaluate and treat Consult to Physical Therapy Evaluate & Treat Comment: Assess for any post stroke deficits Physician Instructions: Evaluate and Treat Discharge provider: Bekah Tarango MD Summary Hospital Course Discharge Diagnosis: Subacute CVA TIA Atrial fibrillation presumed, paroxysmal Hypertension Hyperlipidemia Allergic rhinitis GERD Constipation Other comorbidities/past medical history: Lichen sclerosis Recent eye procedure for cataract Hospital Course: Patient brought in by from home.? Patient was just seen by ER and hospitalist on the day prior for subacute stroke.? Patient was discharged to home from the emergency department after hospitalist had decided no indication for admission and was given prescription for losartan and Eliquis.? Eliquis was to be started this upcoming Sunday (2 days from now).?For this presentation, new symptoms started at 0830h in the morning.? 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 Patient just had cataract surgery this past Sunday (3 days prior).? Please see previous notes from ER note and Hospitalist note yesterday.? Patient did have CT head, CT angiogram head and neck as well as MRI of the brain and echocardiogram on the day prior to this presentation. On Anticoagulants: No, has not started Eliquis prior to this presentation. Patient did not complain of any fever chills nausea vomiting or diaphoresis. No chest pain or palpitations. No shortness of breath wheezing or cough. No abdominal pain constipation or diarrhea. No dysuria or hematuria no difficulty with movement of any extremities. No neurological symptoms at the time of my examination. Not complaining of any mood changes or acute depression. MRI confirmed no further CVAs from the initial documented subacute CVAs. Patient's blood pressure was consistently running high likely somewhat to hypertension but also augmented with white coat syndrome. Patient was initiated on losartan 25 mg and this was increased to 50 mg prior to discharge. Also initiated at 5 mg b.i.d. patient had no further symptoms or signs concerning for extension of her CVA during the hospital stay. Status at Discharge Cognitive/behavioral status at discharge: at baseline, oriented Functional status at discharge: independent ambulation Overall status at discharge: patient is back to baseline Time Spent with Patient Time spent: Greater than 30 minutes Exam Vital Signs (past 8 hours): - 02/25/23 04:00 02/25/23 08:00 Temperature 97.6 F 97.6 F Pulse Rate 60 62 Respiratory Rate 14 18 Blood Pressure 135/67 155/66 H Pulse Oximetry 97 97 Oxygen Flow Rate 0 0 Oxygen Delivery Method Room Air Oxygen Flow Rate 0 Narrative Exam Narrative: General:? Patient is well developed and well nourished, in no distress at this time. HEENT:? Normocephalic, atraumatic, extraocular muscles intact Neck: supple and symmetric, trachea is midline Chest:? Normal AP diameter and contour without kyphoscoliosis, no tachypnea, equal chest rise bilaterally. Lungs:? CTA b/l no wheezing rhonchi or rales. Cardio:? Heart sounds normal no extra sounds or murmurs Abdomen: Soft nontender. Musculoskeletal:? Muscle strength and tone are equal within normal limits, no deformity. Extremities: No edema or joint effusions. No cyanosis or clubbing. Skin:? Pale,? Warm to touch,dry and intact without rashes or lesions. Neuro:? Alert, oriented,? sensation to touch intact in all extremities, no gross deficits noted of cranial nerves. rapid alternating movements smooth and coordinated, heel to morrison unremarkable. Psych:? Patient has a well-kept appearance, appropriate affect, mental status at titude thought context and judgment are appropriate for age. Objective Labs 02/25/23 05:31 02/25/23 05:31 Labs: Laboratory Results - last 24 hr 02/24/23 02/24/23 02/24/23 12:23 12:23 12:23 WBC 11.1 H RBC 5.08 Hgb 14.4 Hct 43.9 MCV 86.4 MCH 28.4 MCHC 32.8 RDW 13.8 Plt Count 239 Neut % (Auto) 72.4 Lymph % (Auto) 20.5 L [place] % (Auto) 6.5 Eos % (Auto) 0.2 L Baso % (Auto) 0.4 Neut # (Auto) 8000 H Lymph # (Auto) 2300 [place] # (Auto) 700 Eos # (Auto) 0 Baso # (Auto) 0 PT 11.9 INR 1.0 APTT 34 Sodium 131 L Potassium 3.9 Chloride 96 L Carbon Dioxide 27 BUN 12 Creatinine 0.67 Estimated GFR > 60 BUN/Creatinine Ratio 17.9 Glucose 126 H Calcium 9.3 Magnesium 2.0 Total Bilirubin 0.9 AST 27 ALT 21 Alkaline Phosphatase 73 Total Creatine Kinase 74 CK-MB (CK-2) TNP CK-MB (CK-2) Rel Index TNP Troponin I < 0.012 NT-Pro-B Natriuret Pep Total Protein 7.8 Albumin 4.6 Globulin 3.2 Albumin/Globulin Ratio 1.4 Triglycerides Cholesterol LDL Cholesterol, Calc HDL Cholesterol SARS-CoV-2 (PCR) 02/24/23 02/24/23 02/25/23 12:23 12:56 05:31 WBC 6.2 RBC 4.83 Hgb 13.8 Hct 41.6 MCV 86.1 MCH 28.5 MCHC 33.1 RDW 13.8 Plt Count 215 Neut % (Auto) 51.7 D Lymph % (Auto) 36.1 [place] % (Auto) 9.7 Eos % (Auto) 1.5 L Baso % (Auto) 1.0 Neut # (Auto) 3200 Lymph # (Auto) 2200 [place] # (Auto) 600 Eos # (Auto) 100 Baso # (Auto) 100 PT INR APTT Sodium Potassium Chloride Carbon Dioxide BUN Creatinine Estimated GFR BUN/Creatinine Ratio Glucose Calcium Magnesium Total Bilirubin AST ALT Alkaline Phosphatase Total Creatine Kinase CK-MB (CK-2) CK-MB (CK-2) Rel Index Troponin I NT-Pro-B Natriuret Pep 184 Total Protein Albumin Globulin Albumin/Globulin Ratio Triglycerides Cholesterol LDL Cholesterol, Calc HDL Cholesterol SARS-CoV-2 (PCR) Negative 02/25/23 05:31 WBC RBC Hgb Hct MCV MCH MCHC RDW Plt Count Neut % (Auto) Lymph % (Auto) [place] % (Auto) Eos % (Auto) Baso % (Auto) Neut # (Auto) Lymph # (Auto) [place] # (Auto) Eos # (Auto) Baso # (Auto) PT INR APTT Sodium 130 L Potassium 3.7 Chloride 98 Carbon Dioxide 26 BUN 11 Creatinine 0.60 Estimated GFR > 60 BUN/Creatinine Ratio 18.3 Glucose 103 Calcium 8.8 Magnesium Total Bilirubin AST ALT Alkaline Phosphatase Total Creatine Kinase CK-MB (CK-2) CK-MB (CK-2) Rel Index Troponin I NT-Pro-B Natriuret Pep Total Protein Albumin Globulin Albumin/Globulin Ratio Triglycerides 124 Cholesterol 181 LDL Cholesterol, Calc 96 HDL Cholesterol 60 SARS-CoV-2 (PCR) PFSH Medical History HLD (hyperlipidemia) Lichen sclerosus of female genitalia Surgical History No pertinent past surgical history Family History Father Diabetes mellitus Mother No pertinent past medical history Social History household members: spouse Smoking Status: Never smoker alcohol intake: current substance use type: does not use Discharge Plan Discharge Plan Patient Disposition: Home Nursing Discharge Comment: call MD/return to ER if symptoms worsen: refer to stroke handout. it is good practice to monitor your blood pressure/pulse twice a day x 1-2 weeks. keep a log of these Vital Signs and bring to your follow up appointment w/ your PCP. make an appt to see your MD w/in 7-10 days of discharge. continue your eye drops as instructed by eye doctor. eliquis handout included in your discharge paperwork. contact your MD/pharmacist if you have any questions. it was a pleasure to be your nurse, and i hope you enjoy the rest of your day. Discharge orders & Medications Prescriptions: New Eliquis 5 mg Tablet 5 mg PO BID Qty: 60 0RF aspirin 81 mg Tablet,Delayed Release (Dr/Ec) 81 mg PO DAILY Qty: 30 0RF Rx Instructions: Start taking daily on March 18, without an end date. atorvastatin [Lipitor] 20 mg Tablet 80 mg PO BEDTIME Qty: 120 0RF losartan 50 mg Tablet 50 mg PO DAILY Qty: 30 0RF clopidogrel 75 mg Tablet 75 mg PO DAILY Qty: 20 0RF famotidine [Pepcid AC] 20 mg Tablet 20 mg PO BID Qty: 60 0RF Continued betamethasone, augmented 0.05 % gel 1 applic TOP .COMPLEX Qty: 15 1RF Rx Instructions: 1 applic topical At least twice a month, use more frequently for symptoms cyclosporine [Restasis] 0.05 % dropperette 1 drp EYE-BOTH BID estradiol 0.01 % (0.1 mg/gram) cream 1 g VAG QWEEK PRN (Reason: vaginal atrophy) Rx Instructions: Apply a small amount at the opening to the vagina as needed to control 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 psyllium Packet 1 packet PO DAILY Rx Instructions: nightly fluticasone propionate [Allergy Relief (fluticasone)] 50 mcg/actuation [place],Suspension 1 spray INTRANASAL PRN PRN (Reason: Allergy Symptoms) cholecalciferol (vitamin D3) 50 mcg (2,000 unit) Tablet 50 mcg PO DAILY Rx Instructions: in evening Zyrtec 10 mg Capsule 10 mg PO DAILY PRN (Reason: Constipation) Discontinued famotidine 20 mg tablet 20 mg PO DAILY Rx Instructions: in morning etodolac 400 mg tablet 400 mg PO DAILY Patient Comments: WILL D/C 02/26/23 Rx Instructions: in morning simvastatin 40 mg tablet 20 mg PO BEDTIME turmeric 1,000 mg PO BID Patient Comments: WILL D/C 02/26/23 Eliquis 5 mg tablet 5 mg PO BID Qty: 60 0RF Patient Comments: NOT STARTED YET WILL START 02/26/23 losartan 25 mg tablet 25 mg PO DAILY Qty: 30 0RF Patient Comments: NOT STARTED YET Follow up/Referrals: Danay Vela DO [Primary Care Provider] - Visit Report/Discharge Packet Instructions: Apixaban Stand Alone Forms: Patient Portal/API, Stroke Signs & Symptoms Discharge Data Primary Care Provider: Danay Vela Attending Provider: Bekah Tarango Admit Date/Time: 02/24/23 14:15 Quality VTE Deep Vein Thrombosis/Pulmonary Embolism Present on Admission: No
[2023-02-25 11:48] VITALS: BP 166/61; O2SAT 62
--- NOTE | 2023-02-25 12:37 | PC.NURSE ---
0800: a/o, voices needs. ind w/ mobility and ADLs. continues w/ R visual field deficit. took eloquis w/o problems, and 1st dose of cozaar given. b/p 166/61 and 62 pulse. d/c orders received: reviewed w/ patient and . they state they understand all d/c instructions. left floor at 1215 pm
== END 2023-02-25 12:20 | disposition home or self-care (01) | DRG 65 ==
LOC: ED 13:45 → AC 02-25 07:50
PROVIDERS: Admitting Provider Neuromusculoskeletal Medicine, Sports Medicine; Emergency Provider Emergency Medicine; PCP Family Medicine; Visit Provider Neuromusculoskeletal Medicine, Sports Medicine
DX: I63.9 Cerebral infarction, unspecified (principal); G45.9 Transient cerebral ischemic attack, unspecified; I48.0 Paroxysmal atrial fibrillation; I10 Essential (primary) hypertension; E78.5 Hyperlipidemia, unspecified; J30.9 Allergic rhinitis, unspecified; K21.9 Gastro-esophageal reflux disease without esophagitis; K59.00 Constipation, unspecified; H53.47 Heteronymous bilateral field defects; R29.700 NIHSS score 0; R29.703 NIHSS score 3; Z20.822 Contact with and (suspected) exposure to COVID-19; Z79.01 Long term (current) use of anticoagulants; Z79.899 Other long term (current) drug therapy
CPT/HCPCS: 36415; 70450; 70496; 70498; 70551; 71045; 80048; 80053; 80061; 80305; 81003; 82550; 82962; 83735; 83880; 84484; 85025; 85610; 85730; 87635; 93005; 93010; 93306; 99285; C9803; G0378; A9270; Q9967

== ENCOUNTER 2023-05-01 21:11 | Emergency (ER) | payer MEDICARE, OTHER, SELFPAY ==
[2023-02-24 14:50] VITALS: BMI 23.9
[2023-05-01 21:14] VITALS: BP 185/84; PULSE 71; RESP 16; TEMP 36.9; O2SAT 99; BMI 23.4
--- NOTE | 2023-05-01 23:30 | ED_ITS ---
HPI - Extremity Injury (Upper) General Chief Complaint: Extremity Injury, Upper Stated Complaint: left forearm, wrist cut Time Seen by Provider: 05/01/23 21:25 Source: patient Mode of arrival: Ambulatory History of Present Illness HPI narrative: 77-year-old female nonsmoker with history of TIA, hypertension, hyperlipidemia presents with her for evaluation of a deep laceration to her left forearm. She states that she was clearly having a clot see moment when she tripped and fell forward, striking her arm on what she thinks is likely the sharp corner of a cabinet. She has moderate bleeding from a flap on her forearm that was controlled with wound care at home. She denies any prodromal symptoms such as dizziness, weakness or lightheadedness. She has no chest pain or shortness of breath. She denies numbness, tingling or weakness. Related Data Home Medications Medication Instructions Recorded Confirmed cyclosporine 0.05 % eye drops in a 1 drp EYE-BOTH BID 01/19/23 02/24/23 dropperette (Restasis) estradiol 0.01% (0.1 mg/gram) 1 g vaginal QWEEK PRN vaginal 01/19/23 02/24/23 vaginal cream atrophy cetirizine 10 mg capsule (Zyrtec) 10 mg PO DAILY PRN Constipation 02/23/23 02/24/23 cholecalciferol (vitamin D3) 50 50 mcg PO DAILY 02/23/23 02/24/23 mcg (2,000 unit) tablet fluticasone propionate 50 1 spray intranasal PRN PRN Allergy 02/23/23 02/24/23 mcg/actuation nasal Symptoms spray,suspension (Allergy Relief (fluticasone)) psyllium 1 packet PO DAILY 02/23/23 02/24/23 Previous Rx's Medication Instructions Recorded betamethasone, augmented 0.05 % 1 applic topical .COMPLEX Lichen 04/06/22 topical gel sclerosis #15 grams apixaban 5 mg tablet (Eliquis) 5 mg PO BID #60 tabs 02/25/23 aspirin 81 mg tablet,delayed 81 mg PO DAILY #30 tabs 02/25/23 release atorvastatin 20 mg tablet (Lipitor) 80 mg PO BEDTIME #120 tabs 02/25/23 clopidogrel 75 mg tablet 75 mg PO DAILY #20 tabs 02/25/23 famotidine 20 mg tablet (Pepcid AC) 20 mg PO BID #60 tabs 02/25/23 losartan 50 mg tablet 50 mg PO DAILY #30 tabs 02/25/23 cephalexin 500 mg capsule 500 mg PO Q6H 7 days #28 caps 05/02/23 Allergies Allergy/AdvReac Type Severity Reaction Status Date / Time nitrofurantoin Allergy Intermediate Verified 02/24/23 14:12 [From MACRODANTIN] Review of Systems Review of Systems Narrative: GENERAL: Denies chills, fatigue, malaise, fever, sweats. HEENT: Denies sinus pain, ear pain, sore throat, difficulty swallowing, dizziness. RESPIRATORY: Denies dyspnea, cough, wheezing, hemoptysis, sputum. CARDIOVASCULAR: Denies chest pain, palpitations, orthopnea, edema, GASTROINTESTINAL: Denies nausea, vomiting, abdominal pain, diarrhea, constipation, melena. : Denies dysuria, frequency, incontinence, hematuria, urinary retention. MUSCULOSKELETAL: denies weakness, joint pain, or bony pain SKIN: See HPI NEUROLOGIC: Denies weakness, headache, numbness, change in speech, confusion, seizures, incoordination. PSYCHIATRIC: No concerning psychosocial issues. 12 point review of systems is negative except for those stated above Patient History Medical History HLD (hyperlipidemia) Lichen sclerosus of female genitalia Surgical History No pertinent past surgical history Family History Father Diabetes mellitus Mother No pertinent past medical history Social History household members: spouse Smoking Status: Never smoker alcohol intake: current substance use type: does not use Smoking Status: Never smoker alcohol intake frequency: 0-2 drinks per day Substance Use Type: does not use Exam Narrative Exam Narrative: GEN: AOx3 and in mild distress, GCS 15 EYES: Pupils are equal, round, and reactive to light and accommodation. Extraoccular muscles are intact bilaterally. There is no subconjunctival hemorrhage or exudate. CHEST: Lungs are clear to auscultation bilaterally and free of wheezes, rales, or rhonchi. Heart rate is regular rhythm, there are no murmurs, clicks, rubs, or gallops. There is no chest wall tenderness. ABD: Abdomen is soft and nontender. There is no guarding or rebound. Bowel sounds are normal in all 4 quadrants. There is no mass or organomegaly. EXT: 6 cm flap laceration on volar surface of left forearm. Clean without evidence of foreign body. When viewed in a bloodless field there is evidence of a fully intact tendon with visualized tendon glide (flexor carpi radialis). There is a very small amount of arterial bleed just lateral to the tendon as noted. Bleeding is controlled with 1 deep biting suture in this region. No evidence that muscle belly is involved, no evidence of tendon laceration. Compartments are soft, no evidence of compartment syndrome, neurovascular status distal to the injury is intact SKIN: Warm, pink, and dry. No erythema or rash Initial Vital Signs Initial Vital Signs: Vital Signs Temperature 98.5 F 05/01/23 21:14 Pulse Rate 71 05/01/23 21:14 Respiratory Rate 16 05/01/23 21:14 Blood Pressure 185/84 H 05/01/23 21:14 Pulse Oximetry 99 05/01/23 21:14 Oxygen Delivery Method Room Air 05/01/23 21:14 Procedures Laceration Repair Laceration 1: Site: upper extremity Side (If applicable): left Size (cm): 6 Description: flap and clean Depth: involves muscle layer Local Anesthetic: lidocaine 2% and with epi Amount of anesthesia used (mL): 6 Pre-repair: wound explored, irrigated extensively and cleansed with chl orhexadine Skin layer closed with: nylon Skin layer suture size: 4-0 Number of sutures: 11 Technique: simple, interrupted and horizontal mattress Subcutaneous layer closed with: vicryl Subcutaneous layer suture size: 4-0 Number of sutures: 2 Technique: simple, interrupted Course Vital Signs Vital signs: Vital Signs - 8 hr 05/01/23 21:14 05/02/23 01:33 Temperature 98.5 F Pulse Rate 71 68 Respiratory Rate 16 15 Blood Pressure 185/84 H 186/79 H Pulse Oximetry 99 97 Oxygen Delivery Method Room Air Room Air MDM - Extremity Injury (Upper) MDM Narrative Medical decision making narrative: [77] year old patient presents with complex laceration to left forearm Multiple etiologies for patient's symptoms considered including, but not limited to: [Deep laceration, tendon involvement, arterial involvement versus other] Prior Charts reviewed in our EMR Primary Historian: patient Patient history and physical exam reassuring, this is a deep and complex laceration but no evidence of muscle belly or tendon involvement, there is a small arterial bleed that was well-controlled with wound repair and applied pressure. There is no evidence of compartment syndrome though extensive discussion was made with both patient and about signs and symptoms to watch for including increasing pain, numbness, tingling or weakness of her extremity, discoloration and other. Findings and discharge diagnosis discussed with patient/family followed by verbalization of understanding Return precautions discussed with patient/family whom verbalize understanding of diagnosis and plan Discharge Plan Departure Patient Disposition: Home Clinical Impression: Forearm laceration Instructions: DI for Laceration Repair -- Complex Activity Restrictions/Additional Instructions: *You have been diagnosed with [complex forearm laceration] *What to do: *Please continue to take your regular medications as directed. [ x] New medication prescriptions sent to your pharmacy: [[facility] ] [ ] New medication written as a paper prescription [ ] No new medications given *Please follow up with your primary care provider in 2-3 days, call for an appointment. Let them know you were seen in the Emergency Department and that we ask that you be seen in follow up. We will electronically transmit a record of today's note if your PCP is in our system Please keep the wound clean and dry to the best of your ability. Please monitor for signs of infection such as redness to the skin or increasing pain. Have the sutures/jemima removed by your doctor in about 10 days. If you are unable to get into your doctor, we would be happy to remove the sutures/jemima in that same timeframe. *Return to Emergency Department if you should have any new, worsening or concerning symptoms, such as increasing pain, swelling, numbness, tingling, discoloration of your fingers or other bothersome symptoms Prescriptions: New cephalexin 500 mg capsule 500 mg PO Q6H 7 Days Qty: 28 0RF No Action betamethasone, augmented 0.05 % gel 1 applic TOP .COMPLEX Qty: 15 1RF Rx Instructions: 1 applic topical At least twice a month, use more frequently for symptoms cyclosporine [Restasis] 0.05 % dropperette 1 drp EYE-BOTH BID estradiol 0.01 % (0.1 mg/gram) cream 1 g VAG QWEEK PRN (Reason: vaginal atrophy) Rx Instructions: Apply a small amount at the opening to the vagina as needed to control 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 psyllium Packet 1 packet PO DAILY Rx Instructions: nightly fluticasone propionate [Allergy Relief (fluticasone)] 50 mcg/actuation [place],Suspension 1 spray INTRANASAL PRN PRN (Reason: Allergy Symptoms) cholecalciferol (vitamin D3) 50 mcg (2,000 unit) Tablet 50 mcg PO DAILY Rx Instructions: in evening Zyrtec 10 mg Capsule 10 mg PO DAILY PRN (Reason: Constipation) Eliquis 5 mg Tablet 5 mg PO BID Qty: 60 0RF aspirin 81 mg Tablet,Delayed Release (Dr/Ec) 81 mg PO DAILY Qty: 30 0RF Rx Instructions: Start taking daily on March 18, without an end date. atorvastatin [Lipitor] 20 mg Tablet 80 mg PO BEDTIME Qty: 120 0RF losartan 50 mg Tablet 50 mg PO DAILY Qty: 30 0RF clopidogrel 75 mg Tablet 75 mg PO DAILY Qty: 20 0RF famotidine [Pepcid AC] 20 mg Tablet 20 mg PO BID Qty: 60 0RF Referrals: Danay Vela DO [Non-Staff] - Stand Alone Forms: Patient Portal/API
[2023-05-02 01:33] VITALS: BP 186/79; PULSE 68; RESP 15; O2SAT 97
== END 2023-05-02 01:35 | disposition home or self-care (01) ==
PROVIDERS: Emergency Provider Emergency Medicine; PCP Family Medicine
DX: S51.812A Laceration without foreign body of left forearm, initial encounter (principal); W01.190A Fall on same level from slipping, tripping and stumbling with subsequent striking against furniture, initial encounter
CPT/HCPCS: 13121; 99281; 99283

== ENCOUNTER → 2023-07-23 13:53 | Outpatient (CLI) | payer MEDICARE, OTHER, SELFPAY ==
[2023-02-24 14:50] VITALS: BMI 23.9
--- NOTE | 2023-07-23 | DI.MG.S_ITS ---
BILATERAL DIGITAL SCREENING MAMMOGRAM 3D/2D WITH CAD: 07/23/2023 CLINICAL: Routine screening. Comparison is made to exams dated: 01/26/2021 mammogram, 04/25/2017 mammogram, and 03/28/2016 mammogram - [facility]. There are scattered areas of fibroglandular density in both breasts (category b / 25%-50% glandular tissue). Current study was also evaluated with a Computer Aided Detection (CAD) system. No significant masses, calcifications, or other findings are seen in either breast. There has been no significant interval change. IMPRESSION: NEGATIVE There is no mammographic evidence of malignancy. A 1 year screening mammogram is recommended. Based on the Tyrer Cuzick model (a risk assessment model) the patient's lifetime risk is 2.4% and her 10 year risk is 2.4%. According to the ACR, ACS, and NCCN guidelines, an annual breast MRI exam along with mammogram is recommended if the patient's lifetime risk is 20% or greater. This exam was interpreted at Station ID: [id number]. NOTE: For mammograms, a report in lay terms will be sent to the patient. Approximately 15% of breast malignancies will not be visualized mammographically. In the management of a palpable breast mass, a negative mammogram must not discourage biopsy of a clinically suspicious lesion. Electronically Signed By: Mendel berman/manan:07/23/2023 14:59:49 letter sent: Normal Exam ACR BI-RADS Category 1: Negative [id number]
== END ==
PROVIDERS: PCP Family Medicine; Referring Provider Family Medicine; Visit Provider Family Medicine
DX: Z12.31 Encounter for screening mammogram for malignant neoplasm of breast (principal)
CPT/HCPCS: 77063; 77067

== ENCOUNTER 2024-04-14 12:47 | Day surgery (SDC) | payer MEDICARE, OTHER, SELFPAY ==
[2023-02-24 14:50] VITALS: BMI 23.9
[2024-04-14 08:28] VITALS: BMI 24.6
[2024-04-14 13:14] VITALS: BP 141/69; PULSE 73; RESP 17; TEMP 37.2; O2SAT 98; BMI 24.6
--- NOTE | 2024-04-14 14:00 | PM.PREOP ---
Pre-operative Note Interval Note History & Physical reviewed/Exam performed by Physician: Yes Changes to H&P: No ASA Class (for procedural sedation): II
--- NOTE | 2024-04-14 14:41 | SUR.OPER ---
Lithotomy on padded OR bed, head on pillow, arms secured on padded arm boards at <90 degrees abduction. Legs secured in padded yellow fins stirrups.
[2024-04-14] MEDS: BUPIVACAINE 0.5% W/ EPI (PF) 10 ML VIAL INJ (14:44)
[2024-04-14 15:05] VITALS: BP 121/52; PULSE 73; RESP 20; TEMP 36.1; O2SAT 97
--- NOTE | 2024-04-14 15:09 | P.OP_ITS ---
Operative Date/Time/Diagnoses Date of procedure: 04/14/24 Time of procedure: 15:09 Pre-op diagnosis: lichen sclerosis with labial fusion, urinary outflow obstruction Post-op diagnosis: same Procedure & Clinicians Procedure: blunt dissection of labial adhesions (labiaplasty) Same procedure as scheduled: Yes Indications: severe lichen sclerosis with urinary outflow obstruction Surgeon: Sandra Yeung Click Yes if Unassisted: Yes Anesthesia Type: Sedation Operative Notes Findings: severe lichen sclerosis with obliteration of wiyot anatomy, complete fusion of bilateral labia urethral caruncle noted following labial separation remainder internal exam unremarkable Closure Type: not applicable Specimen(s): none sent Estimated Blood Loss (mL): 1 Procedure in detail: Patient was taken to the operating room and transferred to the operating table in supine position. Procedural sedation was induced per anesthesia and patient was placed in dorsal lithotomy with her legs in Jamin stirrups. The surgical field was sterilely prepped and draped. A timeout was performed. Exam under anesthesia was performed with findings as noted above. A liberal amount of 0.1% topical estrogen was applied and under digital blunt dissection the labia were able to be gradually opened with mosque of wiyot anatomy. Visualization of urethra and introitus with findings as noted above. Additional topical estrogen cream applied to abraded labial wound bed with noted hemostasis. Patient had her legs taken out of stirrups and was transferred to the PACU in stable condition. Post-operative Condition: stable Disposition: PACU Plan for aftercare: home
[2024-04-14 15:10] VITALS: BP 99/77; PULSE 71; RESP 14; O2SAT 98
[2024-04-14 15:15] VITALS: BP 139/64; PULSE 72; RESP 20; TEMP 36.5; O2SAT 96
== END 2024-04-14 15:31 | disposition home or self-care (01) ==
PROVIDERS: PCP Family Medicine; Referring Provider Obstetrics & Gynecology; Visit Provider Obstetrics & Gynecology
PROC: (CPT 56441; principal; 2024-04-14 13:45)
DX: N90.4 Leukoplakia of vulva (principal); Q52.5 Fusion of labia; N13.8 Other obstructive and reflux uropathy; N36.2 Urethral caruncle
CPT/HCPCS: 56441; J1100; J2405; J2704; J3010